=== PATIENT | female | born 1940 | race Caucasian/White ===

== ENCOUNTER 2018-01-25 11:33 | Emergency (ER) | payer MEDICARE, MEDICAID, SELFPAY ==
[2018-01-25 11:35] VITALS: BP 115/61; PULSE 50; RESP 17; TEMP 36.5; O2SAT 94; BMI 26.4
[2018-01-25 11:41] VITALS: O2SAT 95
--- NOTE | 2018-01-25 12:30 | CT_ITS ---
STUDY: CT BRAIN WITHOUT CONTRAST REASON FOR EXAM: Female, 77 years old. Fall. Laceration RADIATION DOSAGE (If Supplied By Facility): CTDIvol = ( 60.81 ) mGy, DLP = ( 1089.89 ) mGycm TECHNIQUE: Transaxial CT imaging of the brain was performed without administration of intravenous contrast material. Individualized dose optimization techniques were used for this CT. COMPARISON: None. FINDINGS: Posterior soft tissue swelling. Normal calvarium. There is moderate cerebral atrophy with widening of the extra-axial spaces and ventricular dilatation. There are areas of decreased attenuation within the white matter tracts of the supratentorial brain, consistent with microvascular disease changes. Stable lacunar infarct of the right basal ganglia. Normal brainstem. There is mild cerebellar atrophy. There is no intracranial hemorrhage. There are no findings of an acute ischemic infarction. Normal visualized paranasal sinuses. CT/Brain/Head without Contrast IMPRESSION: Chronic involutional changes of the brain. Soft tissue swelling. No hemorrhage. Electronically Signed: Harris Fernández MD at 15:16 EDT , Service support ,
--- NOTE | 2018-01-25 12:31 | EKG12_ITS ---
Test Reason : FALL Blood Pressure : / mmHG Vent. Rate : 047 BPM Atrial Rate : 047 BPM P-R Int : 168 ms QRS Dur : 090 ms QT Int : 506 ms P-R-T Axes : 070 -07 -69 degrees QTc Int : 447 ms Suspect unspecified pacemaker failure Sinus bradycardia ST & T wave abnormality, consider inferior ischemia ST & T wave abnormality, consider anterior ischemia Abnormal ECG Confirmed by JAMIE FRANKLIN, MARCY ([id number]), news editor JAXSON ADAMS ([id number] on 01/29/2018 8:25:05 AM Referred By: SUSAN Confirmed By:MARCY AYALA MD
[2018-01-25 13:18] LABS: Absolute Lymphocyte Count 1.36 X10^3/ul (0.83-4.51); Absolute Neutrophil Count 3.7 X10^3/uL (2.0-7.7); Basophil# 0.01 X10^3/uL; Basophil% 0.2 % (0-1); Eosinophil# 0.03 X10^3/uL; Eosinophils% 0.5 % (0-5); Hematocrit 39.3 % (37-47); Hemoglobin 12.9 g/dl (12.0-15.0); Lymphocyte # 1.36 X10^3/ul (4.0); Lymphocyte % 24.8 % (19-41); Mean Corp Hgb Conc 32.8 g/gl (32-36); Mean Corpuscular Hgb 29.8 pg (27.0-32.0); Mean Corpuscular Volume 90.8 fL (81-99); Mean Platelet Vol. 10.8 fl (6.2-12.0); Monocyte# 0.36 X10^3/uL; Monocyte% 6.6 % (0-10); Neutrophil # 3.71 X10^3/uL (2.7-7.7); Neutrophil % 67.5 % (47-70); POSITIVE COUNT NO; POSITIVE DIFFERENTIAL NO; POSITIVE MORPHOLOGY NO; Platelet Count 180 K/mm3 (150-450); RBC Distribution Width SD 46.5 fl (35.1-43.9); Red Blood Count 4.33 M/mm3 (4.2-5.4); White Blood Count 5.5 K/mm3 (4.4-11.0)
[2018-01-25 13:31] LABS: Anion Gap 10 (5-15); BUN 7 mg/dL (7-18); BUN/Creat Ratio 6.7 RATIO (10-20); Calcium,Total 8.8 mg/dL (8.5-10.1); Chloride 104 mmol/L (98-107); Creatinine, Serum 1.04 mg/dL (0.55-1.02); EST Glomerular Filtration Rate 54 mL/min (>60); Est Glom Filt Rate - Afr Amer 66 mL/min (>60); Glucose 97 mg/dL (74-106); Potassium 2.8 mmol/L (3.5-5.1); Sodium Level 144 mmol/L (136-145)
[2018-01-25 15:13] VITALS: BP 109/80; PULSE 49; RESP 18; O2SAT 94
--- NOTE | 2018-01-25 16:00 | ED.DCSUM_ITS ---
- ER Visit Summary Date of Service: 01/25/18 Chief Complaint: [] Head injury History of Present Illness: The patient is a 77 F [] complaining of losing her balance and striking her head. She reports she is on Eliquis. She reports mild headache. Denies nausea/vomiting. Denies hurting her neck. Denies chest pain or shortness of breath. No other complaints at this time. She does report losing her balance more frequently. She reports she resides at a assisted living facility. Physical Examination: [] Afebrile, vital signs stable. 77-year-old female no acute distress. Conversational. Head is normocephalic with a superior occipital hematoma without laceration. There is mild tenderness to the affected area. There is no step-off. There is no midline C-spine tenderness or step-off. Cardiac exam is regular rate and rhythm. Lungs are clear to auscultation. Abdomen is soft nontender. Pelvis stable. Test Results: [] CT head without contrast is negative. CBC is normal. Electrolytes are normal with exertional potassium of 2.8. EKG showed normal sinus rhythm rate of 47 without ectopy unchanged from previous EKG. Emergency Department Course and Treatment: [] Patient evaluated for intracranial bleed secondary to her history of being on Eliquis on her fall. This was negative. Patient's potassium was low and replaced with 40 mEq of KCl. Patient was encouraged to speak with her physician at this living facility to provide arrangements to prevent future falls. Patient was encouraged to add a potassium to her diet and follow-up with her primary care physician. Treatment Plan: [] Follow-up with PCP. Disposition: [] Discharge, stable. Impression: [] Hypokalemia Close head injury This note was generated with [employer] dictation software. It may contain incorrect words, spelling, and punctuation that were not noted in review of the chart prior to signing ED Disposition - Plan for ED Patient: Chief Complaint: Fall Referrals: Bharati Kc DO [Primary Care Provider] -
--- NOTE | 2018-01-25 16:00 | ED.DEP ---
ED Disposition - Plan for ED Patient: Disposition: Home or Assisted Living Chief Complaint: Fall Instructions: ED Fall Uncertain Cause Referrals: Bharati Kc DO [Primary Care Provider] -
[2018-01-25 16:40] VITALS: PULSE 50; RESP 17; O2SAT 95
== END 2018-01-25 16:41 | disposition home or self-care (01) ==
PROVIDERS: Emergency Provider Emergency Medicine; Family Provider Internal Medicine; PCP Internal Medicine
DX: S00.03XA Contusion of scalp, initial encounter (principal); W19.XXXA Unspecified fall, initial encounter; Y93.9 Activity, unspecified; Y92.9 Unspecified place or not applicable; Y99.9 Unspecified external cause status; E87.6 Hypokalemia; I10 Essential (primary) hypertension; Z79.01 Long term (current) use of anticoagulants; Z79.899 Other long term (current) drug therapy; Z86.718 Personal history of other venous thrombosis and embolism; Z86.711 Personal history of pulmonary embolism
CPT/HCPCS: 70450; 80048; 85025; 93005; 99285; A4216

== ENCOUNTER 2018-04-02 15:55 | Inpatient (IN) | payer MEDICARE, SELFPAY ==
[2018-04-02] VITALS (14 sets, daily range): BP systolic 86–114; BP diastolic 50–71; PULSE 63–70; RESP 16–18; TEMP 36.4–36.9; O2SAT 95–98; BMI 26.4; BMI 25.4; BMI 25.5
--- NOTE | 2018-04-02 16:07 | CT_ITS ---
STUDY: CT BRAIN WITHOUT CONTRAST REASON FOR EXAM: Female, 78 years old. Left-sided weakness. RADIATION DOSAGE (If Supplied By Facility): CTDIvol = ( 44.99 ) mGy, DLP = ( 779.24 ) mGycm TECHNIQUE: Transaxial CT imaging of the brain was performed without administration of intravenous contrast material. Individualized dose optimization techniques were used for this CT. COMPARISON: January 25, 2018 FINDINGS: Normal soft tissue structures. Normal calvarium. There is mild cerebral atrophy with widening of the extra-axial spaces and ventricular dilatation. There are areas of decreased attenuation within the white matter tracts of the supratentorial brain, consistent with microvascular disease changes. Normal basal ganglia and thalami. Normal brainstem. There is mild cerebellar atrophy. There is no intracranial hemorrhage. There are no findings of an acute ischemic infarction. Normal visualized paranasal sinuses. CT/Brain/Head without Contrast IMPRESSION: Chronic involutional changes of the brain. Small vessel ischemia. Electronically Signed: Rosina Carreon MD at 17:19 EDT Tel , Service support ,
--- NOTE | 2018-04-02 16:07 | EKG12_ITS ---
Test Reason : WEAKNESS Blood Pressure : / mmHG Vent. Rate : 063 BPM Atrial Rate : 063 BPM P-R Int : 146 ms QRS Dur : 084 ms QT Int : 436 ms P-R-T Axes : 024 -20 030 degrees QTc Int : 446 ms Normal sinus rhythm Normal ECG Confirmed by MARCY AYALA MD ([id number]), film editor supervisor JAXSON ADAMS ([id number] on 04/03/2018 5:13:24 PM Referred By: LILA Confirmed By:MARCY AYALA MD
--- NOTE | 2018-04-02 16:10 | RAD_ITS ---
STUDY: X-RAY CHEST REASON FOR EXAM: Female, 78 years old. Left-sided weakness and slight facial droop. TECHNIQUE: Portable upright. COMPARISON: October 15, 2017. FINDINGS: There is no new focal consolidation. There are leads projecting over the mid and lower thoracic spinal canal that likely reflect underlying neurostimulators. Normal size heart. Normal mediastinum and nicole. Normal visualized pulmonary arteries. There is atherosclerotic calcification of the aortic arch with tortuosity. There are diffuse degenerative changes of the visualized thoracic spine. Normal visualized ribs, clavicles, and shoulders. There is no demonstrated abnormality of the visualized soft tissue structures of the upper abdomen. RAD/Chest 1 View IMPRESSION: No acute cardiopulmonary process. Electronically Signed: Rosina Carreon MD at 16:47 EDT Tel , Service support ,
--- NOTE | 2018-04-02 16:13 | ED.DCSUM_ITS ---
- ER Visit Summary Date of Service: 04/02/18 Chief Complaint: Left-sided weakness History of Present Illness: The patient is a 78 F presenting after developing left-sided weakness and facial droop. This started around 3 PM. Her symptoms have now improved. Her physical therapist noted she had difficulty with forward motion of her left lower extremity. She has a history of mild dementia. She is alert and oriented x2. EMS was called and she was transported to ED for further evaluation. She denies complaints on arrival. Physical Examination: Vitals are stable. Patient is afebrile. Alert no acute distress. HEENT exam is unremarkable. Neck is supple. Lungs are clear and equal bilaterally. Heart is regular rate and rhythm. Abdomen is soft nontender nondistended. Extremities are unremarkable. Skin is warm and dry. Alert and oriented ?2, NIH 1 for LOC questions. Remainder of exam is unremarkable. Emergency Department Course and Treatment: EKG is sinus rate is 63 with no acute ischemic changes. CT head shows chronic changes. Chest x-ray shows no acute process. White count of 13.9. BUN is 45, creatinine 1.75. This is increased from previous of 1.04. INR is 1.2. Urinalysis unremarkable. Troponin is negative. Discussed with Dr. Curiel. He states patient is normally alert and oriented ?3. Discussed with the hospitalist for admission. Disposition: Observation Impression: TIA This note was generated with [employer] dictation software. It may contain incorrect words, spelling, and punctuation that were not noted in review of the chart prior to signing ED Disposition - Plan for ED Patient: Chief Complaint: Neuro S/Sx Referrals: Bharati Kc DO [Primary Care Provider] -
[2018-04-02 16:31] LABS: International Normalized Ratio 1.2; Partial Thromboplast Time 26.3 Seconds (24.1-36.2); Prothrombin Time (Protime)PT. 14.9 SECONDS (11.7-14.9)
[2018-04-02 16:36] LABS: Bedside Glucose 94 mg/dL (70-110)
[2018-04-02 16:53] LABS: Absolute Lymphocyte Count 2.35 X10^3/ul (0.83-4.51); Absolute Neutrophil Count 10.1 X10^3/uL (2.0-7.7); Basophil# 0.04 X10^3/uL; Basophil% 0.3 % (0-1); Eosinophil# 0.08 X10^3/uL; Eosinophils% 0.6 % (0-5); Hematocrit 40.4 % (37-47); Hemoglobin 13.3 g/dl (12.0-15.0); Lymphocyte # 2.35 X10^3/ul (4.0); Mean Corp Hgb Conc 32.9 g/gl (32-36); Mean Corpuscular Hgb 30.8 pg (27.0-32.0); Mean Corpuscular Volume 93.5 fL (81-99); Mean Platelet Vol. 9.9 fl (6.2-12.0); Monocyte# 0.94 X10^3/uL; Monocyte% 6.8 % (0-10); Neutrophil % 72.8 % (47-70); Platelet Count 320 K/mm3 (150-450); RBC Distribution Width CV 16.4 % (11.6-14.6); RBC Distribution Width SD 54.9 fl (35.1-43.9); Red Blood Count 4.32 M/mm3 (4.2-5.4); White Blood Count 13.9 K/mm3 (4.4-11.0)
[2018-04-02 17:05] LABS: POSITIVE COUNT YES; POSITIVE DIFFERENTIAL NO; POSITIVE MORPHOLOGY YES
[2018-04-02 18:17] LABS: Bacteria 0 SEEN /hpf (None Seen); Mucous, Urine 0 SEEN /hpf (<or=2+); Red Blood Cells-Urine 0 SEEN /hpf (0-5); Squamous Epithelial Cells - UA 0 SEEN /hpf (5-10); White Blood Cells 0 SEEN /hpf (0-5)
[2018-04-02 18:34] LABS: Color, Urine Yellow (Yellow); Glucose, Dipstick Normal (Normal); Ketone-Dipstick Negative (Negative); Leukocyte Esterase-Dipstick 25 /ul (Negative); Nitrite-Dipstick Negative (Negative); Occult Blood-Urine Negative /ul (Negative); Protein-Dipstick Negative (Negative); Specific Gravity, Urine 1.015 (1.002-1.030); Urine Bilirubin Dipstick 1 mg/dL (Negative); Urine Clarity Clear (Clear); Urine Urobilinogen Normal (Normal)
[2018-04-02 18:52] LABS: Hyaline Cast 10-25 SEEN /lpf (0-5)
[2018-04-02 19:05] LABS: Anion Gap 10 (5-15); BUN 45 mg/dL (7-18); BUN/Creat Ratio 25.7 RATIO (10-20); Calcium,Total 8.9 mg/dL (8.5-10.1); Chloride 104 mmol/L (98-107); Creatinine, Serum 1.75 mg/dL (0.55-1.02); EST Glomerular Filtration Rate 30 mL/min (>60); Est Glom Filt Rate - Afr Amer 36 mL/min (>60); Glucose 96 mg/dL (74-106); Potassium 4.5 mmol/L (3.5-5.1); Sodium Level 135 mmol/L (136-145)
--- NOTE | 2018-04-02 20:10 | PCM.HP.STD ---
Problem List (1) TIA (transient ischemic attack) Status: Acute Qualifiers: Transient cerebral ischemia type: unspecified Qualified Code(s): G45.9 - Transient cerebral ischemic attack, unspecified (2) MARSHALL (acute kidney injury) Status: Acute History of Present Illness Date of Admission: 04/02/18 Chief Complaint: Confusion and left-sided weakness. The patient is a 78 year old F who is residing at a facility currently and I was noted to be confused and not herself and also noted with left-sided weakness. Patient presented to the emergency room and underwent a CAT scan that showed some chronic ischemic changes but no other acute process. Per reports, patient is normally alert and oriented ?3 but only currently alert and oriented ?2. Patient is not able to articulate what is going on with her at this time. Patient is being admitted for further stroke and TIA workup. [] Past Medical History Past Medical History (Chronic Problems): Chronic Problems History of pulmonary embolism (Chronic) Subcortical infarction (Chronic) Obesity (BMI 30.0-34.9) (Chronic) COPD (chronic obstructive pulmonary disease) (Chronic) Lifelong non-smoker HTN (hypertension) (Chronic) Hx of deep venous thrombosis (Chronic) Hypothyroid (Chronic) Chronic headache (Chronic) Vertigo (Chronic) Allergies Penicillins [PCN] Allergy (Verified 01/25/18 11:38) Hives Home Medications: Ambulatory Orders Medication Instructions Recorded Acetaminophen 650 mg PO Q4H PRN PRN 04/11/17 Acetaminophen 650 mg RC Q4H PRN PRN 04/11/17 Albuterol Aerosols [Ventolin 2.5 mg INHALATION Q4H PRN PRN 04/11/17 Aerosols] Albuterol Liquid [Ventolin Liquid] 2 mg PO Q6H PRN PRN 04/11/17 Atorvastatin Calcium [Lipitor] 20 mg PO QHS 04/11/17 Azelas/Fluticasone/Sod Chlorid 2 each NS QHS 04/11/17 [Ticalast Nasal [place] Kit] Bisacodyl 10 mg RC DAILY PRN PRN 04/11/17 Cholecalciferol (Vitamin D3) 2,000 unit PO DAILY 04/11/17 [Vitamin D3] Furosemide [Lasix] 20 mg PO DAILY 04/11/17 Guaifenesin [Robitussin] 10 ml PO Q4H PRN PRN 04/11/17 Levothyroxine [Synthroid] 100 mcg PO DAILY 04/11/17 Lisinopril [Zestril] 10 mg PO BID 04/11/17 Loratadine 10 mg PO DAILY 04/11/17 Mag Hydrox/Al Hydrox/Simeth 30 ml PO Q4H PRN PRN 04/11/17 [Antacid Suspension] Magnesium Hydroxide [Milk Of 30 ml PO DAILY PRN PRN 04/11/17 Magnesia] Meclizine HCl 25 mg PO TID PRN PRN 04/11/17 Mometasone/Formoterol [Dulera 100 1 puff IH DAILY 04/11/17 Mcg/5 Mcg Inhaler] Na Phos,M-B/Na Phos,Di-Ba [Fleet 120 ml RECTAL DAILY PRN PRN 04/11/17 Enema] Omeprazole 20 mg PO QHS 04/11/17 Oxybutynin Chloride [Ditropan Xl] 10 mg PO QHS 04/11/17 Sumatriptan Succinate [Imitrex] 100 mg PO .X1 PRN 04/11/17 Tetrahydrz/Dext 70/Peg 400/Pvp 2 drop EACH EYE DAILY 04/11/17 [Visine Advanced Eye Drop] Trazodone HCl 100 mg PO QHS 04/11/17 Apixaban [Eliquis] 2.5 mg PO DAILY 10/15/17 Propranolol HCl 40 mg PO BID 10/15/17 Glucosam/Chondroitin/Diet Cb25 1 tab PO BID 10/16/17 [Trepadone Capsule] Guaifenesin [Guaifenesin ER] 1 tab PO BID 10/16/17 Montelukast Sodium [Singulair] 10 mg PO QHS 10/16/17 Bupropion HCl [Bupropion HCl Sr] 200 mg PO BID 01/25/18 Cyanocobalamin [Vitamin B12] 1,000 mcg PO DAILY@0800 01/25/18 Fluoxetine [Prozac] 20 mg PO DAILY 01/25/18 Citalopram Hydrobromide 20 mg PO DAILY 04/02/18 [Citalopram HBr] Fluticasone/Vilanterol [Breo 1 inhaler INHALATION DAILY 04/02/18 Ellipta 200-25 Mcg INH] Megestrol [Megace] 40 mg PO DAILY 04/02/18 Surgical History: appendectomy, cataract, hysterectomy, total knee arthroplasty - bilateral, - - Lumbar fusion Psychiatric History: No pertinent psych hx MAINTENANCE DIRECTOR History: No pertinent MAINTENANCE DIRECTOR history Smoking Status: Unknown if ever smoked - *Family History Maternal History Items: Dementia, Heart Disease - age 85 Paternal History Items: Dementia, Heart Disease - age 84 Offspring History Items: No pertinent history - 1 adopted daughter lived in [place] Review of Systems Constitutional: Denies: Chills, Fever, Weight Change Eyes: Denies: Blurred vision, Double vision HEENT: Denies: Head Aches, Sinus Congestion, Sinus Drainage Cardiovascular: Denies: Chest Pain, Palpitations Respiratory: Denies: Cough, Shortness of breath at rest, Sputum production Gastrointestinal: Denies: Abdominal Pain, Nausea, Vomiting Genitourinary: Denies: Dysuria Musculoskeletal: Denies: Joint Pain, Joint Tenderness Skin: Denies: Dryness, Rash Neurological: Reports: Confusion, Focal weakness - Reports of left sided weakness.. Denies: Blurred vision, Double vision, Numbness, Tingling Psychiatric: Denies: Anxiety, Depression Endocrine: Denies: Change in Body Habitus, Heat/ Cold Intolerance Hematologic/ Lymphatic: Denies: Easy Bruising, Easy Bleeding, Hx of blood clot VTE Information - Inpt Only VTE Present on Admission: No VTE Pharm Prophylaxis ordered?: Yes Patient Problems: Active and Suspected Problems TIA (transient ischemic attack) (Acute) MARSHALL (acute kidney injury) (Acute) - Physical Exam General: Alert, Cooperative, No apparent distress, - - oriented to self and place (date = June, did not know year) HEENT: Atraumatic, PERRLA, EOMI, Normocephalic Oral: Moist Mucosa, No Gingival or Mucosal Lesions/ Ulcerations Neck: No Nodes, Thyroid Normal Size and Texture Lungs: Clear to auscultation, Normal air movement, No rhonchi, No wheeze Cardiovascular: Regular rate, Regular Rhythm, Normal S1, Normal S2, No murmurs Abdomen: Bowel Sounds Present, Soft, Non Tender, Non-Distended, No Hepato-splenomegaly Extremities: No edema, No Calf Tenderness Skin: No rashes, No breakdown Musculoskeletal: No Tenderness to Palpation of Joints or Extremities, No Muscle Wasting Neurological: Cranial nerves II-XII grossly intact, Deep Tendon Reflexes 2+/4 and Symmetrical, Neuro grossly intact, Motor Exam 5/5 strength throughout, - - NIH = 2 (missed as she did not know the date and she had some trouble articulating the image of the kitchen) Psych/Mental Status: Normal Affect, Appropriate Vital Signs Temp Pulse Resp BP Pulse Ox 36.4 C L 65 16 96/57 L 98 04/02/18 15:56 04/02/18 19:58 04/02/18 19:58 04/02/18 19:58 04/02/18 19:58 Oxygen Delivery Method Room Air Laboratory Results 04/02/18 04/02/18 04/02/18 18:30 18:10 16:28 WBC RBC Hgb Hct MCV MCH MCHC RDW RDW Differential Plt Count MPV Immature Gran % (Auto) Neut % (Auto) Lymph % (Auto) [place] % (Auto) Eos % (Auto) Baso % (Auto) Absolute Neuts (auto) Absolute Lymphs (auto) Total Counted Diff Path Review PT INR APTT Sodium 135 L Potassium 4.5 Chloride 104 Carbon Dioxide 21.0 Anion Gap 10 BUN 45 H Creatinine 1.75 H Estim Creat Clear Calc Est GFR (MDRD) Af Amer 36 L Est GFR (MDRD) Non-Af 30 L BUN/Creatinine Ratio 25.7 H Glucose 96 Calcium 8.9 Troponin I < 0.015 Urine Color Yellow Urine Clarity Clear Urine pH 5.0 Ur Specific [place] 1.015 Urine Protein Negative Urine Glucose (UA) Normal Urine Ketones Negative Urine Occult Blood Negative Urine Nitrite Negative Urine Bilirubin 1 H Urine Urobilinogen Normal Ur Leukocyte Esterase 25 H Urine RBC 0 SEEN Urine WBC 0 SEEN Ur Squamous Epith Cells 0 SEEN Urine Bacteria 0 SEEN Hyaline Casts 10-25 SEEN Urine Mucus 0 SEEN POC Glucose 94 04/02/18 04/02/18 04/02/18 16:14 16:14 16:14 WBC 13.9 H RBC 4.32 Hgb 13.3 Hct 40.4 MCV 93.5 MCH 30.8 MCHC 32.9 RDW 16.4 H RDW Differential 54.9 H Plt Count 320 MPV 9.9 Immature Gran % (Auto) 2.500 H Neut % (Auto) 72.8 H Lymph % (Auto) 17.0 L [place] % (Auto) 6.8 Eos % (Auto) 0.6 Baso % (Auto) 0.3 Absolute Neuts (auto) 10.1 H Absolute Lymphs (auto) 2.35 Total Counted Not Reportable Diff Path Review February foll PT 14.9 INR 1.2 APTT 26.3 Sodium Cancelled Potassium Cancelled Chloride Cancelled Carbon Dioxide Cancelled Anion Gap Cancelled BUN Cancelled Creatinine Cancelled Estim Creat Clear Calc Cancelled Est GFR (MDRD) Af Amer Cancelled Est GFR (MDRD) Non-Af Cancelled BUN/Creatinine Ratio Cancelled Glucose Cancelled Calcium Cancelled Troponin I Cancelled Urine Color Urine Clarity Urine pH Ur Specific [place] Urine Protein Urine Glucose (UA) Urine Ketones Urine Occult Blood Urine Nitrite Urine Bilirubin Urine Urobilinogen Ur Leukocyte Esterase Urine RBC Urine WBC Ur Squamous Epith Cells Urine Bacteria Hyaline Casts Urine Mucus POC Glucose Clinical Impression(s) from Imaging Studies Brain CT 04/02/18 16:07 IMPRESSION: Chronic involutional changes of the brain. Small vessel ischemia. Electronically Signed: Rosina Carreon MD at 17:19 EDT Tel , Service support , Chest X-Ray 04/02/18 16:10 IMPRESSION: No acute cardiopulmonary process. Electronically Signed: Rosina Carreon MD at 16:47 EDT Tel , Service support , EKG reviewed and showed normal sinus rhythm without any acute changes. Assessment/Plan All Active Problems TIA (transient ischemic attack) (Acute) MARSHALL (acute kidney injury) (Acute) Elevated serum creatinine (Acute) Dehydration (Acute) Hypokalemia (Acute) Hypotension (Acute) TIA (transient ischemic attack) (Resolved) 1. TIA Suspected Patient with confusion and left-sided weakness Patient is confused and are poorly this is a change from her baseline but I do not appreciate any left-sided weakness at this time Patient will undergo a TIA and stroke workup with an MRI of the brain, MRA of the head neck, 2D echocardiogram, neurology consultation for physical and occupational therapy. Patient will have a bedside swallow evaluation and if she feels that the speech therapy will be involved if she passes then patient can start diet. The possibilities could be the fact that patient's creatinine is up which could reflect dehydration which could manifest some confusion symptoms in a 78-year-old. Patient was already on Eliquis 2. Acute kidney injury Creatinine from January 25 was 1.04 and now it is 1.75 Patient's Lasix will be discontinued and patient will receive IV fluids Reassess creatinine in the morning 3. DVT prophylaxis: Patient is already anticoagulated on Eliquis and will continue. However, it appears the patient is only on once daily could consider increasing it to twice daily and but will assess the patient's stroke workup and then proceed from there. Code Visit Inpatient E&M: 32349 Init Hosp L3
--- NOTE | 2018-04-02 20:18 | HP.PCM_ITS ---
Problem List (1) TIA (transient ischemic attack) Status: Acute Qualifiers: Transient cerebral ischemia type: unspecified Qualified Code(s): G45.9 - Transient cerebral ischemic attack, unspecified (2) MARSHALL (acute kidney injury) Status: Acute History of Present Illness Date of Admission: 04/02/18 Chief Complaint: Confusion and left-sided weakness. The patient is a 78 year old F who is residing at a facility currently and I was noted to be confused and not herself and also noted with left-sided weakness. Patient presented to the emergency room and underwent a CAT scan that showed some chronic ischemic changes but no other acute process. Per reports, patient is normally alert and oriented ?3 but only currently alert and oriented ?2. Patient is not able to articulate what is going on with her at this time. Patient is being admitted for further stroke and TIA workup. [] Past Medical History Past Medical History (Chronic Problems): Chronic Problems History of pulmonary embolism (Chronic) Subcortical infarction (Chronic) Obesity (BMI 30.0-34.9) (Chronic) COPD (chronic obstructive pulmonary disease) (Chronic) Lifelong non-smoker HTN (hypertension) (Chronic) Hx of deep venous thrombosis (Chronic) Hypothyroid (Chronic) Chronic headache (Chronic) Vertigo (Chronic) Allergies Penicillins [PCN] Allergy (Verified 01/25/18 11:38) Hives Home Medications: Ambulatory Orders Medication Instructions Recorded Acetaminophen 650 mg PO Q4H PRN PRN 04/11/17 Acetaminophen 650 mg RC Q4H PRN PRN 04/11/17 Albuterol Aerosols [Ventolin 2.5 mg INHALATION Q4H PRN PRN 04/11/17 Aerosols] Albuterol Liquid [Ventolin Liquid] 2 mg PO Q6H PRN PRN 04/11/17 Atorvastatin Calcium [Lipitor] 20 mg PO QHS 04/11/17 Azelas/Fluticasone/Sod Chlorid 2 each NS QHS 04/11/17 [Ticalast Nasal [place] Kit] Bisacodyl 10 mg RC DAILY PRN PRN 04/11/17 Cholecalciferol (Vitamin D3) 2,000 unit PO DAILY 04/11/17 [Vitamin D3] Furosemide [Lasix] 20 mg PO DAILY 04/11/17 Guaifenesin [Robitussin] 10 ml PO Q4H PRN PRN 04/11/17 Levothyroxine [Synthroid] 100 mcg PO DAILY 04/11/17 Lisinopril [Zestril] 10 mg PO BID 04/11/17 Loratadine 10 mg PO DAILY 04/11/17 Mag Hydrox/Al Hydrox/Simeth 30 ml PO Q4H PRN PRN 04/11/17 [Antacid Suspension] Magnesium Hydroxide [Milk Of 30 ml PO DAILY PRN PRN 04/11/17 Magnesia] Meclizine HCl 25 mg PO TID PRN PRN 04/11/17 Mometasone/Formoterol [Dulera 100 1 puff IH DAILY 04/11/17 Mcg/5 Mcg Inhaler] Na Phos,M-B/Na Phos,Di-Ba [Fleet 120 ml RECTAL DAILY PRN PRN 04/11/17 Enema] Omeprazole 20 mg PO QHS 04/11/17 Oxybutynin Chloride [Ditropan Xl] 10 mg PO QHS 04/11/17 Sumatriptan Succinate [Imitrex] 100 mg PO .X1 PRN 04/11/17 Tetrahydrz/Dext 70/Peg 400/Pvp 2 drop EACH EYE DAILY 04/11/17 [Visine Advanced Eye Drop] Trazodone HCl 100 mg PO QHS 04/11/17 Apixaban [Eliquis] 2.5 mg PO DAILY 10/15/17 Propranolol HCl 40 mg PO BID 10/15/17 Glucosam/Chondroitin/Diet Cb25 1 tab PO BID 10/16/17 [Trepadone Capsule] Guaifenesin [Guaifenesin ER] 1 tab PO BID 10/16/17 Montelukast Sodium [Singulair] 10 mg PO QHS 10/16/17 Bupropion HCl [Bupropion HCl Sr] 200 mg PO BID 01/25/18 Cyanocobalamin [Vitamin B12] 1,000 mcg PO DAILY@0800 01/25/18 Fluoxetine [Prozac] 20 mg PO DAILY 01/25/18 Citalopram Hydrobromide 20 mg PO DAILY 04/02/18 [Citalopram HBr] Fluticasone/Vilanterol [Breo 1 inhaler INHALATION DAILY 04/02/18 Ellipta 200-25 Mcg INH] Megestrol [Megace] 40 mg PO DAILY 04/02/18 Surgical History: appendectomy, cataract, hysterectomy, total knee arthroplasty - bilateral, - - Lumbar fusion Psychiatric History: No pertinent psych hx SHOER History: No pertinent SHOER history Smoking Status: Unknown if ever smoked - *Family History Maternal History Items: Dementia, Heart Disease - age 85 Paternal History Items: Dementia, Heart Disease - age 84 Offspring History Items: No pertinent history - 1 adopted daughter lived in [place] Review of Systems Constitutional: Denies: Chills, Fever, Weight Change Eyes: Denies: Blurred vision, Double vision HEENT: Denies: Head Aches, Sinus Congestion, Sinus Drainage Cardiovascular: Denies: Chest Pain, Palpitations Respiratory: Denies: Cough, Shortness of breath at rest, Sputum production Gastrointestinal: Denies: Abdominal Pain, Nausea, Vomiting Genitourinary: Denies: Dysuria Musculoskeletal: Denies: Joint Pain, Joint Tenderness Skin: Denies: Dryness, Rash Neurological: Reports: Confusion, Focal weakness - Reports of left sided weakness.. Denies: Blurred vision, Double vision, Numbness, Tingling Psychiatric: Denies: Anxiety, Depression Endocrine: Denies: Change in Body Habitus, Heat/ Cold Intolerance Hematologic/ Lymphatic: Denies: Easy Bruising, Easy Bleeding, Hx of blood clot VTE Information - Inpt Only VTE Present on Admission: No VTE Pharm Prophylaxis ordered?: Yes Patient Problems: Active and Suspected Problems TIA (transient ischemic attack) (Acute) MARSHALL (acute kidney injury) (Acute) - Physical Exam General: Alert, Cooperative, No apparent distress, - - oriented to self and place (date = June, did not know year) HEENT: Atraumatic, PERRLA, EOMI, Normocephalic Oral: Moist Mucosa, No Gingival or Mucosal Lesions/ Ulcerations Neck: No Nodes, Thyroid Normal Size and Texture Lungs: Clear to auscultation, Normal air movement, No rhonchi, No wheeze Cardiovascular: Regular rate, Regular Rhythm, Normal S1, Normal S2, No murmurs Abdomen: Bowel Sounds Present, Soft, Non Tender, Non-Distended, No Hepato- splenomegaly Extremities: No edema, No Calf Tenderness Skin: No rashes, No breakdown Musculoskeletal: No Tenderness to Palpation of Joints or Extremities, No Muscle Wasting Neurological: Cranial nerves II-XII grossly intact, Deep Tendon Reflexes 2+/4 and Symmetrical, Neuro grossly intact, Motor Exam 5/5 strength throughout, - - NIH = 2 (missed as she did not know the date and she had some trouble articulating the image of the kitchen) Psych/Mental Status: Normal Affect, Appropriate Vital Signs Temp Pulse Resp BP Pulse Ox 36.4 C L 65 16 96/57 L 98 04/02/18 15:56 04/02/18 19:58 04/02/18 19:58 04/02/18 19:58 04/02/18 19:58 Oxygen Delivery Method Room Air Laboratory Results 04/02/18 04/02/18 04/02/18 18:30 18:10 16:28 WBC RBC Hgb Hct MCV MCH MCHC RDW RDW Differential Plt Count MPV Immature Gran % (Auto) Neut % (Auto) Lymph % (Auto) [place] % (Auto) Eos % (Auto) Baso % (Auto) Absolute Neuts (auto) Absolute Lymphs (auto) Total Counted Diff Path Review PT INR APTT Sodium 135 L Potassium 4.5 Chloride 104 Carbon Dioxide 21.0 Anion Gap 10 BUN 45 H Creatinine 1.75 H Estim Creat Clear Calc Est GFR (MDRD) Af Amer 36 L Est GFR (MDRD) Non-Af 30 L BUN/Creatinine Ratio 25.7 H Glucose 96 Calcium 8.9 Troponin I < 0.015 Urine Color Yellow Urine Clarity Clear Urine pH 5.0 Ur Specific [place] 1.015 Urine Protein Negative Urine Glucose (UA) Normal Urine Ketones Negative Urine Occult Blood Negative Urine Nitrite Negative Urine Bilirubin 1 H Urine Urobilinogen Normal Ur Leukocyte Esterase 25 H Urine RBC 0 SEEN Urine WBC 0 SEEN Ur Squamous Epith Cells 0 SEEN Urine Bacteria 0 SEEN Hyaline Casts 10-25 SEEN Urine Mucus 0 SEEN POC Glucose 94 04/02/18 04/02/18 04/02/18 16:14 16:14 16:14 WBC 13.9 H RBC 4.32 Hgb 13.3 Hct 40.4 MCV 93.5 MCH 30.8 MCHC 32.9 RDW 16.4 H RDW Differential 54.9 H Plt Count 320 MPV 9.9 Immature Gran % (Auto) 2.500 H Neut % (Auto) 72.8 H Lymph % (Auto) 17.0 L [place] % (Auto) 6.8 Eos % (Auto) 0.6 Baso % (Auto) 0.3 Absolute Neuts (auto) 10.1 H Absolute Lymphs (auto) 2.35 Total Counted Not Reportable Diff Path Review February foll PT 14.9 INR 1.2 APTT 26.3 Sodium Cancelled Potassium Cancelled Chloride Cancelled Carbon Dioxide Cancelled Anion Gap Cancelled BUN Cancelled Creatinine Cancelled Estim Creat Clear Calc Cancelled Est GFR (MDRD) Af Amer Cancelled Est GFR (MDRD) Non-Af Cancelled BUN/Creatinine Ratio Cancelled Glucose Cancelled Calcium Cancelled Troponin I Cancelled Urine Color Urine Clarity Urine pH Ur Specific [place] Urine Protein Urine Glucose (UA) Urine Ketones Urine Occult Blood Urine Nitrite Urine Bilirubin Urine Urobilinogen Ur Leukocyte Esterase Urine RBC Urine WBC Ur Squamous Epith Cells Urine Bacteria Hyaline Casts Urine Mucus POC Glucose Clinical Impression(s) from Imaging Studies Brain CT 04/02/18 16:07 IMPRESSION: Chronic involutional changes of the brain. Small vessel ischemia. Electronically Signed: Rosina Carreon MD at 17:19 EDT Tel , Service support , Chest X-Ray 04/02/18 16:10 IMPRESSION: No acute cardiopulmonary process. Electronically Signed: Rosina Carreon MD at 16:47 EDT Tel , Service support , EKG reviewed and showed normal sinus rhythm without any acute changes. Assessment/Plan All Active Problems TIA (transient ischemic attack) (Acute) MARSHALL (acute kidney injury) (Acute) Elevated serum creatinine (Acute) Dehydration (Acute) Hypokalemia (Acute) Hypotension (Acute) TIA (transient ischemic attack) (Resolved) 1. TIA * Suspected * Patient with confusion and left-sided weakness * Patient is confused and are poorly this is a change from her baseline but I do not appreciate any left-sided weakness at this time * Patient will undergo a TIA and stroke workup with an MRI of the brain, MRA of the head neck, 2D echocardiogram, neurology consultation for physical and occupational therapy. * Patient will have a bedside swallow evaluation and if she feels that the speech therapy will be involved if she passes then patient can start diet. * The possibilities could be the fact that patient's creatinine is up which could reflect dehydration which could manifest some confusion symptoms in a 78- year-old. * Patient was already on Eliquis 2. Acute kidney injury * Creatinine from January 25 was 1.04 and now it is 1.75 * Patient's Lasix will be discontinued and patient will receive IV fluids * Reassess creatinine in the morning 3. DVT prophylaxis: Patient is already anticoagulated on Eliquis and will continue. However, it appears the patient is only on once daily could consider increasing it to twice daily and but will assess the patient's stroke workup and then proceed from there. Code Visit Inpatient E&M: 88959 Init Hosp L3
--- NOTE | 2018-04-02 21:17 | ECHOD_ITS ---
Reason For Study: TIA/CVA Procedure This was a 2D Doppler, Color Flow transthoracic echocardiogram. The study was technically difficult. Exam performed portable in patient room. Left Ventricle Normal LV size. Left ventricular systolic function is normal. The estimated ejection fraction is 65 %. No evidence for diastolic dysfunction. No regional wall motion abnormalities noted. Right Ventricle Normal RV size. Normal systolic function. Atria Normal left atrium. Normal right atrium. Lipomatous hypertrophy of the atrial septum. No doppler evidence for ASD. Mitral Valve There is mild mitral annular calcification. Normal mitral valve. Trivial mitral valve insufficiency. Tricuspid Valve Normal tricuspid valve. Trivial tricuspid valve insufficiency. Unable to estimate RV systolic pressure/pulmonary artery pressure due to technically difficult study. Aortic Valve Trisinus/trileaflet aortic valve. Mild focal aortic valve thickening. Pulmonic Valve The pulmonic valve is not well visualized. Great Vessels Normal sized aortic root. Pericardium/Pleural No pericardial effusion. MMode/2D Measurements & Calculations LVIDd: 4.2 cm IVSd: 0.82 cm Ao root diam: 3.0 cm LVIDs: 3.0 cm LVPWd: 0.89 cm LA dimension: 3.2 cm RVDd: 3.7 cm FS: 28.8 % LAV(MOD-bp): 30.8 ml EDV(MOD-sp4): 59.7 ml SV(MOD-sp4): 42.4 ml LAV(MOD-bp) Indexed: 17.9 ml/m2 ESV(MOD-sp4): 17.4 ml LAV(MOD-sp2): 29.2 ml EF(MOD-sp4): 71.0 % LAV(MOD-sp4): 30.4 ml LA A4 area: 14.3 cm2 RA A4 area: 10.5 cm2 Doppler Measurements & Calculations MV E max evelio: 64.8 cm/sec Lat Peak E' Evelio: 8.9 cm/sec Med Peak E' Evelio: 7.0 cm/sec MV A max evelio: 90.2 cm/sec E/E' lat: 7.3 E/E' med: 9.3 MV E/A: 0.72 Ao V2 max: 135.3 cm/sec LV V1 max: 127.7 cm/sec PA V2 max: 78.8 cm/sec Ao max P.3 mmHg LV V1 max P.5 mmHg Ao V2 mean: 93.4 cm/sec Ao mean P.0 mmHg Ao V2 VTI: 25.8 cm Interpretation Summary The study was technically difficult. Left ventricular systolic function is normal. The estimated ejection fraction is 65 %. Lipomatous hypertrophy of the atrial septum. There is mild mitral annular calcification. Trivial mitral valve insufficiency. Trivial tricuspid valve insufficiency. Mild focal aortic valve thickening. Unable to estimate RV systolic pressure/pulmonary artery pressure due to technically difficult study. No evidence for diastolic dysfunction. Ordering Physician: Josiah Dawn Referring Physician: Bharati Kc Performed By: Kimi Knapp, ANDRY, RVT
[2018-04-02] MEDS: 0.9% NaCl Peripheral Flush Adult/Peds IV ×2 (22:36→23:44)
[2018-04-02] MEDS: 0.9% Normal Saline 1,000 ML 75 ML IV (22:36)
[2018-04-02] MEDS: Tolterodine Tartrate 2 MG CAP.SA PO (23:42)
[2018-04-02] MEDS: guaiFENesin 600 MG Tablet PO (23:42)
[2018-04-02] MEDS: buPROPion (SR) 100 MG TABLET.SA 200 MG PO (23:42)
[2018-04-02] MEDS: Aspirin 81 MG TAB.CHEW PO (23:42)
[2018-04-02] MEDS: Lisinopril 10 MG Tablet PO (23:43)
[2018-04-02] MEDS: Montelukast 10 MG Tablet PO (23:43)
[2018-04-02] MEDS: Atorvastatin Calcium 20 MG Tablet PO (23:43)
[2018-04-02] MEDS: Propranolol 40 MG Tablet PO (23:43)
[2018-04-02] MEDS: Pantoprazole Sodium 20 MG Tablet PO (23:44)
[2018-04-03] VITALS (15 sets, daily range): BP systolic 94–136; BP diastolic 38–113; PULSE 60–87; RESP 16–18; TEMP 36.7–37.3; O2SAT 94–98; BMI 25.4
[2018-04-03] MEDS: Levothyroxine 100 MCG Tablet PO (05:21)
[2018-04-03 06:16] LABS: Cholesterol 135 mg/dL (200); High Density Lipoprotein 39 mg/dL; Triglycerides 73 mg/dL; Very Low Density Lipoprotein 15 mg/dL (5-40)
[2018-04-03] MEDS: Albuterol 2.5 MG/3 ML VIAL.NEB. INHALATION ×3 (07:45→18:57)
[2018-04-03] MEDS: Budesonide Respules 0.5 MG/2 ML AMPUL.NEB. INHALATION ×2 (07:45→18:57)
[2018-04-03] MEDS: Aspirin 81 MG TAB.CHEW PO (08:22)
[2018-04-03] MEDS: Cyanocobalamin 500 MCG Tablet 1000 MCG PO (08:22)
--- NOTE | 2018-04-03 10:39 | CASEMGMT ---
RENA called [facility] and patient is a [facility] resident. She does not require a pre-cert to return. She said if they want to try and skill her they can do it once she returns. RENA faxed clinicals to [facility]. Plan: d/c back to [facility] when ready. Mayte CRAIN MSW
[2018-04-03] MEDS: Citalopram 20 MG Tablet PO (11:01)
[2018-04-03] MEDS: Loratadine 10 MG Tablet PO (11:01)
[2018-04-03] MEDS: buPROPion (SR) 100 MG TABLET.SA 200 MG PO ×2 (11:07→22:23)
[2018-04-03] MEDS: APIXABAN 2.5 MG TABLET PO (11:08)
[2018-04-03] MEDS: guaiFENesin 600 MG Tablet PO ×2 (11:08→22:23)
--- NOTE | 2018-04-03 11:17 | PCM.CONS.GEN ---
Reason for Consult Date of Consultation: 04/03/18 Reason for Consultation: Confusion History of Present Illness: The patient is a 78 year old F admitted from a residential for confusion. See admit H&P note as below. The patient is unable to tell me why she is here, she states that she is in [facility]. She denies any pain. Currently has a pain stimulator in her back and cannot have an MRI. Nursing staff reports that she is stable hemodynamically, no fevers. Per admit H&P:The patient is a 78 year old F who is residing at a facility currently and I was noted to be confused and not herself and also noted with left-sided weakness. Patient presented to the emergency room and underwent a CAT scan that showed some chronic ischemic changes but no other acute process. Per reports, patient is normally alert and oriented ?3 but only currently alert and oriented ?2. Patient is not able to articulate what is going on with her at this time. Patient is being admitted for further stroke and TIA workup. Past Medical History Past Medical History (Chronic Problems): Chronic Problems History of pulmonary embolism (Chronic) Subcortical infarction (Chronic) Obesity (BMI 30.0-34.9) (Chronic) COPD (chronic obstructive pulmonary disease) (Chronic) Lifelong non-smoker HTN (hypertension) (Chronic) Hx of deep venous thrombosis (Chronic) Hypothyroid (Chronic) Chronic headache (Chronic) Vertigo (Chronic) Allergies Penicillins [PCN] Allergy (Verified 01/25/18 11:38) Hives Home Medications: Ambulatory Orders Medication Instructions Recorded Acetaminophen 650 mg PO Q4H PRN PRN 04/11/17 Acetaminophen 650 mg RC Q4H PRN PRN 04/11/17 Albuterol Aerosols [Ventolin 2.5 mg INHALATION Q4H PRN PRN 04/11/17 Aerosols] Albuterol Liquid [Ventolin Liquid] 2 mg PO Q6H PRN PRN 04/11/17 Atorvastatin Calcium [Lipitor] 20 mg PO QHS 04/11/17 Azelas/Fluticasone/Sod Chlorid 2 each NS QHS 04/11/17 [Ticalast Nasal [place] Kit] Bisacodyl 10 mg RC DAILY PRN PRN 04/11/17 Cholecalciferol (Vitamin D3) 2,000 unit PO DAILY 04/11/17 [Vitamin D3] Furosemide [Lasix] 20 mg PO DAILY 04/11/17 Guaifenesin [Robitussin] 10 ml PO Q4H PRN PRN 04/11/17 Levothyroxine [Synthroid] 100 mcg PO DAILY 04/11/17 Lisinopril [Zestril] 10 mg PO BID 04/11/17 Loratadine 10 mg PO DAILY 04/11/17 Mag Hydrox/Al Hydrox/Simeth 30 ml PO Q4H PRN PRN 04/11/17 [Antacid Suspension] Magnesium Hydroxide [Milk Of 30 ml PO DAILY PRN PRN 04/11/17 Magnesia] Meclizine HCl 25 mg PO TID PRN PRN 04/11/17 Mometasone/Formoterol [Dulera 100 1 puff IH DAILY 04/11/17 Mcg/5 Mcg Inhaler] Na Phos,M-B/Na Phos,Di-Ba [Fleet 120 ml RECTAL DAILY PRN PRN 04/11/17 Enema] Omeprazole 20 mg PO QHS 04/11/17 Oxybutynin Chloride [Ditropan Xl] 10 mg PO QHS 04/11/17 Sumatriptan Succinate [Imitrex] 100 mg PO .X1 PRN 04/11/17 Tetrahydrz/Dext 70/Peg 400/Pvp 2 drop EACH EYE DAILY 04/11/17 [Visine Advanced Eye Drop] Trazodone HCl 100 mg PO QHS 04/11/17 Apixaban [Eliquis] 2.5 mg PO DAILY 10/15/17 Propranolol HCl 40 mg PO BID 10/15/17 Glucosam/Chondroitin/Diet Cb25 1 tab PO BID 10/16/17 [Trepadone Capsule] Guaifenesin [Guaifenesin ER] 1 tab PO BID 10/16/17 Montelukast Sodium [Singulair] 10 mg PO QHS 10/16/17 Bupropion HCl [Bupropion HCl Sr] 200 mg PO BID 01/25/18 Cyanocobalamin [Vitamin B12] 1,000 mcg PO DAILY@0800 01/25/18 Citalopram Hydrobromide 20 mg PO DAILY 04/02/18 [Citalopram HBr] Fluticasone/Vilanterol [Breo 1 inhaler INHALATION DAILY 04/02/18 Ellipta 200-25 Mcg INH] Megestrol [Megace] 40 mg PO DAILY 04/02/18 Surgical History: appendectomy, cataract, hysterectomy, total knee arthroplasty - bilateral, - - Lumbar fusion Psychiatric History: No pertinent psych hx 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 Smoking Status: Never smoker Tobacco Use: Non-smoker - *Family History Maternal History Items: Dementia, Heart Disease - age 85 Paternal History Items: Dementia, Heart Disease - age 84 Offspring History Items: No pertinent history - 1 adopted daughter lived in [place] Review of Systems Constitutional: Denies: Chills, Fever, Weight Change HEENT: Denies: Head Aches, Sinus Congestion, Sinus Drainage Cardiovascular: Denies: Chest Pain, Palpitations Respiratory: Denies: Cough, Shortness of breath at rest, Sputum production Gastrointestinal: Denies: Abdominal Pain, Nausea, Vomiting Genitourinary: Denies: Dysuria Musculoskeletal: Denies: Joint Pain, Joint Tenderness Skin: Denies: Rash, Wounds Neurological: Denies: Numbness, Tingling, Focal weakness Psychiatric: Denies: Anxiety, Depression, Homicidal Ideations, Suicidal Ideations Hematologic/ Lymphatic: Denies: Easy Bruising, Easy Bleeding Patient Problems: Active and Suspected Problems TIA (transient ischemic attack) (Acute) MARSHALL (acute kidney injury) (Acute) - Physical Exam General: Alert, Oriented x3, Cooperative HEENT: Atraumatic, PERRLA, EOMI, Normocephalic Neck: Supple, No JVD, Negative Carotid Bruits Lungs: Clear to auscultation, Normal air movement Cardiovascular: Regular rate, No murmurs Abdomen: Bowel Sounds Present, Soft, Non Tender Extremities: No edema, Capillary Refill Less than 3 Seconds Skin: No rashes, No breakdown Musculoskeletal: No Tenderness to Palpation of Joints or Extremities Neurological: Cranial nerves II-XII grossly intact, - - neurologically she does have mild left drift, and abnormal forearm orbit testing on the left. Her reflexes are slightly asymmetric with increased reflexes on the left. Psych/Mental Status: Normal Affect, Appropriate Vital Signs Temp Pulse Resp BP Pulse Ox 37.3 C H 63 17 99/48 L 95 04/03/18 08:11 04/03/18 08:11 04/03/18 08:11 04/03/18 08:11 04/03/18 08:11 Oxygen Flow Rate (L/min) 2 Oxygen Delivery Method Room Air Weight: 67.4 kg Body Mass Index (BMI) 25.4 Intake and Output for Last 24 Hours 04/01/18 04/02/18 04/03/18 23:59 23:59 23:59 Intake Total 79 541 / 541 Balance 541 / 541 Laboratory Tests Past 24 Hrs 04/03/18 05:08 Triglycerides 73 Cholesterol 135 LDL Cholesterol 81 VLDL Cholesterol 15 HDL Cholesterol 39 L Laboratory Results - last 24 hr 04/02/18 04/02/18 04/02/18 16:14 16:14 16:14 WBC 13.9 H RBC 4.32 Hgb 13.3 Hct 40.4 MCV 93.5 MCH 30.8 MCHC 32.9 RDW 16.4 H RDW Differential 54.9 H Plt Count 320 MPV 9.9 Immature Gran % (Auto) 2.500 H Neut % (Auto) 72.8 H Lymph % (Auto) 17.0 L [place] % (Auto) 6.8 Eos % (Auto) 0.6 Baso % (Auto) 0.3 Absolute Neuts (auto) 10.1 H Absolute Lymphs (auto) 2.35 Total Counted Not Reportable Diff Path Review May foll PT 14.9 INR 1.2 APTT 26.3 Sodium Cancelled Potassium Cancelled Chloride Cancelled Carbon Dioxide Cancelled Anion Gap Cancelled BUN Cancelled Creatinine Cancelled Estim Creat Clear Calc Cancelled Est GFR (MDRD) Af Amer Cancelled Est GFR (MDRD) Non-Af Cancelled BUN/Creatinine Ratio Cancelled Glucose Cancelled Calcium Cancelled Troponin I Cancelled Triglycerides Cholesterol LDL Cholesterol VLDL Cholesterol HDL Cholesterol Urine Color Urine Clarity Urine pH Ur Specific [place] Urine Protein Urine Glucose (UA) Urine Ketones Urine Occult Blood Urine Nitrite Urine Bilirubin Urine Urobilinogen Ur Leukocyte Esterase Urine RBC Urine WBC Ur Squamous Epith Cells Urine Bacteria Hyaline Casts Urine Mucus POC Glucose 04/02/18 04/02/18 04/02/18 16:28 18:10 18:30 WBC RBC Hgb Hct MCV MCH MCHC RDW RDW Differential Plt Count MPV Immature Gran % (Auto) Neut % (Auto) Lymph % (Auto) [place] % (Auto) Eos % (Auto) Baso % (Auto) Absolute Neuts (auto) Absolute Lymphs (auto) Total Counted Diff Path Review PT INR APTT Sodium 135 L Potassium 4.5 Chloride 104 Carbon Dioxide 21.0 Anion Gap 10 BUN 45 H Creatinine 1.75 H Estim Creat Clear Calc Est GFR (MDRD) Af Amer 36 L Est GFR (MDRD) Non-Af 30 L BUN/Creatinine Ratio 25.7 H Glucose 96 Calcium 8.9 Troponin I < 0.015 Triglycerides Cholesterol LDL Cholesterol VLDL Cholesterol HDL Cholesterol Urine Color Yellow Urine Clarity Clear Urine pH 5.0 Ur Specific [place] 1.015 Urine Protein Negative Urine Glucose (UA) Normal Urine Ketones Negative Urine Occult Blood Negative Urine Nitrite Negative Urine Bilirubin 1 H Urine Urobilinogen Normal Ur Leukocyte Esterase 25 H Urine RBC 0 SEEN Urine WBC 0 SEEN Ur Squamous Epith Cells 0 SEEN Urine Bacteria 0 SEEN Hyaline Casts 10-25 SEEN Urine Mucus 0 SEEN POC Glucose 94 04/03/18 05:08 WBC RBC Hgb Hct MCV MCH MCHC RDW RDW Differential Plt Count MPV Immature Gran % (Auto) Neut % (Auto) Lymph % (Auto) [place] % (Auto) Eos % (Auto) Baso % (Auto) Absolute Neuts (auto) Absolute Lymphs (auto) Total Counted Diff Path Review PT INR APTT Sodium Potassium Chloride Carbon Dioxide Anion Gap BUN Creatinine Estim Creat Clear Calc Est GFR (MDRD) Af Amer Est GFR (MDRD) Non-Af BUN/Creatinine Ratio Glucose Calcium Troponin I Triglycerides 73 Cholesterol 135 LDL Cholesterol 81 VLDL Cholesterol 15 HDL Cholesterol 39 L Urine Color Urine Clarity Urine pH Ur Specific [place] Urine Protein Urine Glucose (UA) Urine Ketones Urine Occult Blood Urine Nitrite Urine Bilirubin Urine Urobilinogen Ur Leukocyte Esterase Urine RBC Urine WBC Ur Squamous Epith Cells Urine Bacteria Hyaline Casts Urine Mucus POC Glucose ct no acute by report, unable to access images Assessment/Plan All Active Problems TIA (transient ischemic attack) (Acute) MARSHALL (acute kidney injury) (Acute) Elevated serum creatinine (Acute) Dehydration (Acute) Hypokalemia (Acute) Hypotension (Acute) TIA (transient ischemic attack) (Resolved) based on leukocytosis, mild fevers, suspect this is a manifestation of metabolic encephalopathy await cultures no mri due to stimulator, repeat ct pt/ot/sp
--- NOTE | 2018-04-03 11:29 | CT_ITS ---
STUDY: CT BRAIN WITHOUT CONTRAST REASON FOR EXAM: Female, 78 years old. CVA RADIATION DOSAGE (If Supplied By Facility): CTDIvol = ( 60.81 ) mGy, DLP = ( 1135.50 ) mGycm TECHNIQUE: Transaxial CT imaging of the brain was performed without administration of intravenous contrast material. Individualized dose optimization techniques were used for this CT. COMPARISON: April 02, 2018 FINDINGS: Normal soft tissue structures. Normal calvarium. There is moderate cerebral atrophy with widening of the extra-axial spaces and ventricular dilatation. There are areas of decreased attenuation within the white matter tracts of the supratentorial brain, consistent with microvascular disease changes. Normal basal ganglia and thalami. Normal brainstem. There is mild cerebellar atrophy. There is no intracranial hemorrhage. There are no findings of an acute ischemic infarction. Normal visualized paranasal sinuses. CT/Brain/Head without Contrast IMPRESSION: Chronic involutional changes of the brain. Small vessel ischemia. Electronically Signed: Rosina Carreon MD at 12:32 EDT Tel , Service support ,
--- NOTE | 2018-04-03 13:42 | PN_ITS ---
Patient Problems: Active and Suspected Problems TIA (transient ischemic attack) (Acute) MARSHALL (acute kidney injury) (Acute) Subjective: Patient was seen and examined. No new complains. Alert, oriented x3. No weakness or numbness in any extremity. Cannot have an MRI because she has a nerve stimulator. Objective: Physical Exam General: Alert, Cooperative, No apparent distress, AO x3 HEENT: Atraumatic, PERRLA, EOMI, Normocephalic Oral: Moist Mucosa, No Gingival or Mucosal Lesions/ Ulcerations Neck: No Nodes, Thyroid Normal Size and Texture Lungs: Clear to auscultation, Normal air movement, No rhonchi, No wheeze Cardiovascular: Regular rate, Regular Rhythm, Normal S1, Normal S2, No murmurs Abdomen: Bowel Sounds Present, Soft, Non Tender, Non-Distended, No Hepato- splenomegaly Extremities: No edema, No Calf Tenderness Skin: No rashes, No breakdown Musculoskeletal: No Tenderness to Palpation of Joints or Extremities, No Muscle Wasting Neurological: Cranial nerves II-XII grossly intact, Deep Tendon Reflexes 2+/4 and Symmetrical, Neuro grossly intact, Motor Exam 5/5 strength throughout, - - NIH = 2 (missed as she did not know the date and she had some trouble articulating the image of the kitchen) Psych/Mental Status: Normal Affect, Appropriate Vitals/I&O's: Vital Signs Temp Pulse Resp BP Pulse Ox 99.0 F 73 18 101/38 L 96 04/03/18 11:18 04/03/18 11:30 04/03/18 11:18 04/03/18 11:18 04/03/18 11:18 Oxygen Flow Rate (L/min) 2 Oxygen Delivery Method Room Air Weight: 67.4 kg Body Mass Index (BMI) 25.4 Intake and Output for Last 24 Hours 04/01/18 04/02/18 04/03/18 23:59 23:59 23:59 Intake Total 1215 / 1215 Balance 1215 / 1215 Laboratory Results 04/03/18 05:08: Triglycerides 73, Cholesterol 135, LDL Cholesterol 81, VLDL Cholesterol 15, HDL Cholesterol 39 L Current Medications Acetaminophen (Tylenol) 650 mg RECTAL Q4H PRN PRN PRN Reason: pain/fever Acetaminophen (Tylenol) 650 mg PO Q4H PRN PRN PRN Reason: pain/fever Al Hydroxide/Mg Hydroxide (Mylanta Ii) 30 ml PO Q4H PRN PRN PRN Reason: gi distress Albuterol Sulfate (Ventolin Aerosols) 2.5 mg INHALATION Q4H PRN PRN PRN Reason: SOB &/OR WHEEZING Albuterol Sulfate (Ventolin Liquid) 2 mg PO Q6H PRN PRN PRN Reason: SOB &/OR WHEEZING Albuterol Sulfate (Ventolin Aerosols) 2.5 mg INHALATION Q6HWA.RT [facility] Last Admin: 04/03/18 13:28 Dose: 2.5 mg Apixaban (Eliquis) 2.5 mg PO DAILY [facility] Last Admin: 04/03/18 11:08 Dose: 2.5 mg Artificial Tears (Tears Naturale, Artificial Tears) 2 drop EACH EYE DAILY [facility] Last Admin: 04/03/18 11:07 Dose: 2 drop Aspirin (Aspirin, Baby) 81 mg PO DAILY@0800 [facility] Last Admin: 04/03/18 08:22 Dose: 81 mg Atorvastatin Calcium (Lipitor) 20 mg PO QHS [facility] Last Admin: 04/02/18 23:43 Dose: 20 mg Bisacodyl (Dulcolax) 10 mg RECTAL DAILY PRN PRN PRN Reason: Constipation Budesonide (Pulmicort Aerosol) 0.5 mg INHALATION BID.RT [facility] Last Admin: 04/03/18 07:45 Dose: 0.5 mg Bupropion HCl (Wellbutrin Sr (100mg Tablets)) 200 mg PO BID [facility] Last Admin: 04/03/18 11:07 Dose: 200 mg Cholecalciferol (Vitamin D) 2,000 unit PO DAILY [facility] Last Admin: 04/03/18 11:06 Dose: 2,000 unit Citalopram Hydrobromide (Celexa) 20 mg PO DAILY [facility] Last Admin: 04/03/18 11:01 Dose: 20 mg Cyanocobalamin (Vitamin B12) 1,000 mcg PO DAILY@0800 [facility] Last Admin: 04/03/18 08:22 Dose: 1,000 mcg Guaifenesin (Robitussin) 10 ml PO Q4H PRN PRN PRN Reason: COUGH/CONGESTION Guaifenesin (Mucinex) 600 mg PO BID [facility] Last Admin: 04/03/18 11:08 Dose: 600 mg Sodium Chloride () 1,000 mls @ 100 mls/hr IV .Q10H [facility] Levothyroxine Sodium (Synthroid) 100 mcg PO DAILY@0600 [facility] Last Admin: 04/03/18 05:21 Dose: 100 mcg Lisinopril (Zestril) 10 mg PO BID [facility] Last Admin: 04/03/18 11:33 Dose: Not Given Loratadine (Claritin) 10 mg PO DAILY [facility] Last Admin: 04/03/18 11:01 Dose: 10 mg Magnesium Hydroxide (Milk Of Magnesia) 30 ml PO DAILY PRN PRN PRN Reason: Constipation Montelukast Sodium (Singulair) 10 mg PO QHS [facility] Last Admin: 04/02/18 23:43 Dose: 10 mg Pantoprazole Sodium (Protonix) 20 mg PO QHS [facility] Last Admin: 04/02/18 23:44 Dose: 20 mg Propranolol HCl (Inderal) 40 mg PO BID [facility] Last Admin: 04/03/18 11:34 Dose: Not Given Sodium Biphosphate/Sodium Phosphate (Fleet Enema) 1 bottle RECTAL DAILY PRN PRN PRN Reason: Constipation Sodium Chloride () 5 - 30 ml IV UD PRN PRN Reason: SALINE FLUSH Last Admin: 04/02/18 23:44 Dose: 10 ml Tolterodine Tartrate (Detrol La) 2 mg PO QHS [facility] Last Admin: 04/02/18 23:42 Dose: 2 mg Medical Necessity - Tobacco Use Smoking Status: Never smoker Tobacco Use: Non-smoker Assessment/Plan All Active Problems TIA (transient ischemic attack) (Acute) MARSHALL (acute kidney injury) (Acute) Elevated serum creatinine (Acute) Dehydration (Acute) Hypokalemia (Acute) Hypotension (Acute) TIA (transient ischemic attack) (Resolved) 88-year-old with past medical history of hypertension, hypothyroidism, COPD, who comes in with lesion, suspicious for possible TIA/CVA 1. Altered mental status, unclear etiology, resolved, patient is back to baseline. 2. Possible TIA/CVA, chest CT shows no acute infarct, patient cannot have an MRI, neurology consulted, repeat CT scan shows small vessel ischemia, aspirin, statin, Eliquis. No valvular lesions on 2D echo. Lipid profile is stable 3. MARSHALL secondary to dehydration, patient is off Lasix, on IV fluids, repeat creatinine in the morning 4. DVT prophylaxis -on Eliquis Code Visit Inpatient E&M: 62283 Subs Hosp L2
[2018-04-03 13:54] LABS: Pathologist Review Reviewed
[2018-04-03] MEDS: 0.9% Normal Saline 1,000 ML 100 ML IV (13:55)
[2018-04-03] MEDS: Tolterodine Tartrate 2 MG CAP.SA PO (22:22)
[2018-04-03] MEDS: Atorvastatin Calcium 20 MG Tablet PO (22:22)
[2018-04-03] MEDS: Pantoprazole Sodium 20 MG Tablet PO (22:23)
[2018-04-03] MEDS: Montelukast 10 MG Tablet PO (22:25)
[2018-04-03] MEDS: Propranolol 40 MG Tablet PO (23:21)
[2018-04-04] VITALS (8 sets, daily range): BP systolic 113–132; BP diastolic 41–60; PULSE 66–82; RESP 16–18; TEMP 37–37.3; O2SAT 94–97; BMI 25.4
[2018-04-04] MEDS: Levothyroxine 100 MCG Tablet PO (07:02)
[2018-04-04] MEDS: Budesonide Respules 0.5 MG/2 ML AMPUL.NEB. INHALATION (07:24)
[2018-04-04] MEDS: Albuterol 2.5 MG/3 ML VIAL.NEB. INHALATION (07:24)
[2018-04-04] MEDS: Cyanocobalamin 500 MCG Tablet 1000 MCG PO (08:26)
[2018-04-04] MEDS: Aspirin 81 MG TAB.CHEW PO (08:26)
[2018-04-04] MEDS: Loratadine 10 MG Tablet PO (09:54)
[2018-04-04] MEDS: Citalopram 20 MG Tablet PO (09:54)
[2018-04-04] MEDS: APIXABAN 2.5 MG TABLET PO (09:55)
[2018-04-04] MEDS: Propranolol 40 MG Tablet PO (09:55)
[2018-04-04] MEDS: guaiFENesin 600 MG Tablet PO (09:55)
[2018-04-04] MEDS: Lisinopril 10 MG Tablet PO (09:55)
[2018-04-04] MEDS: buPROPion (SR) 100 MG TABLET.SA 200 MG PO (09:56)
[2018-04-04] MEDS: 0.9% Normal Saline 1,000 ML 100 ML IV ×2 (10:06)
--- NOTE | 2018-04-04 11:22 | PN.NEURO_ITS ---
Patient Problems: Active and Suspected Problems TIA (transient ischemic attack) (Acute) MARSHALL (acute kidney injury) (Acute) Subjective: No new complaints. Objective: Is awake and alert. She is still somewhat confused. She knows she is in [place] which is improved from yesterday but she still states that she is in [facility]. Is not know the date, the year or the president and is somewhat distractible. - Physical Exam Vital Signs Temp Pulse Resp BP Pulse Ox 37.2 C 67 17 132/60 H 97 04/04/18 08:16 04/04/18 08:16 04/04/18 08:16 04/04/18 08:16 04/04/18 08:16 Oxygen Flow Rate (L/min) 2 Oxygen Delivery Method Room Air Weight: 67.4 kg Body Mass Index (BMI) 25.4 Intake and Output for Last 24 Hours 04/02/18 04/03/18 04/04/18 23:59 23:59 23:59 Intake Total 79 / 79 2254 / 2254 1231 / 1231 Balance 79 / 79 2254 / 2254 1231 / 1231 Current Medications Generic Name Dose Route Start Last Admin Trade Name Freq PRN Reason Stop Dose Admin Acetaminophen 650 mg 04/02/18 21:17 Tylenol RECTAL Q4H PRN PRN pain/fever Acetaminophen 650 mg 04/02/18 22:30 Tylenol PO Q4H PRN PRN pain/fever Al Hydroxide/Mg Hydroxide 30 ml 04/02/18 21:17 Mylanta Ii PO Q4H PRN PRN gi distress Albuterol Sulfate 2.5 mg 04/02/18 21:17 Ventolin Aerosols INHALATION Q4H PRN PRN SOB &/OR WHEEZING Albuterol Sulfate 2 mg 04/02/18 21:17 Ventolin Liquid PO Q6H PRN PRN SOB &/OR WHEEZING Albuterol Sulfate 2.5 mg 04/03/18 06:00 04/04/18 07:24 Ventolin Aerosols INHALATION 2.5 mg Q6HWA.RT [facility] Administration Apixaban 2.5 mg 04/03/18 10:00 04/04/18 09:55 Eliquis PO 2.5 mg DAILY [facility] Administration Artificial Tears 2 drop 04/03/18 10:00 04/04/18 10:04 Tears Naturale, Artificial Tears EACH EYE 2 drop DAILY [facility] Administration Aspirin 81 mg 04/02/18 22:00 04/04/18 08:26 Aspirin, Baby PO 81 mg DAILY@0800 [facility] Administration Atorvastatin Calcium 20 mg 04/02/18 22:00 04/03/18 22:22 Lipitor PO 20 mg QHS [facility] Administration Bisacodyl 10 mg 04/02/18 21:17 Dulcolax RECTAL DAILY PRN PRN Constipation Budesonide 0.5 mg 04/03/18 06:00 04/04/18 07:24 Pulmicort Aerosol INHALATION 0.5 mg BID.RT [facility] Administration Bupropion HCl 200 mg 04/02/18 22:45 04/04/18 09:56 Wellbutrin Sr (100mg Tablets) PO 200 mg BID [facility] Administration Cholecalciferol 2,000 unit 04/03/18 10:00 04/04/18 09:55 Vitamin D PO 2,000 unit DAILY [facility] Administration Citalopram Hydrobromide 20 mg 04/03/18 10:00 04/04/18 09:54 Celexa PO 20 mg DAILY [facility] Administration Cyanocobalamin 1,000 mcg 04/03/18 08:00 04/04/18 08:26 Vitamin B12 PO 1,000 mcg DAILY@0800 [facility] Administration Guaifenesin 10 ml 04/02/18 21:17 Robitussin PO Q4H PRN PRN COUGH/CONGESTION Guaifenesin 600 mg 04/02/18 22:00 04/04/18 09:55 Mucinex PO 600 mg BID [facility] Administration Sodium Chloride 1,000 mls @ 100 mls/hr 04/03/18 11:35 04/04/18 10:06 IV 100 mls/hr .Q10H [facility] Administration Levothyroxine Sodium 100 mcg 04/03/18 06:00 04/04/18 07:02 Synthroid PO 100 mcg DAILY@0600 [facility] Administration Lisinopril 10 mg 04/02/18 22:00 04/04/18 09:55 Zestril PO 10 mg BID [facility] Administration Loratadine 10 mg 04/03/18 10:00 04/04/18 09:54 Claritin PO 10 mg DAILY [facility] Administration Magnesium Hydroxide 30 ml 04/02/18 21:17 Milk Of Magnesia PO DAILY PRN PRN Constipation Montelukast Sodium 10 mg 04/02/18 22:00 04/03/18 22:25 Singulair PO 10 mg QHS [facility] Administration Nutritional Formula (Lactose Free) 120 ml 04/03/18 18:00 04/04/18 09:53 Ensure Enlive PO 120 ml 4X/DAY [facility] Administration Pantoprazole Sodium 20 mg 04/02/18 22:00 04/03/18 22:23 Protonix PO 20 mg QHS [facility] Administration Propranolol HCl 40 mg 04/02/18 22:00 04/04/18 09:55 Inderal PO 40 mg BID [facility] Administration Sodium Biphosphate/Sodium Phosphate 1 bottle 04/02/18 21:17 Fleet Enema RECTAL DAILY PRN PRN Constipation Sodium Chloride 5 - 30 ml 04/02/18 20:45 04/02/18 23:44 IV 10 ml UD PRN Administration SALINE FLUSH Tolterodine Tartrate 2 mg 04/02/18 22:45 04/03/18 22:22 Detrol La PO 2 mg QHS [facility] Administration Repeat CT unchanged by report Medical Necessity - Tobacco Use Smoking Status: Never smoker Tobacco Use: Non-smoker Assessment/Plan All Active Problems TIA (transient ischemic attack) (Acute) MARSHALL (acute kidney injury) (Acute) Elevated serum creatinine (Acute) Dehydration (Acute) Hypokalemia (Acute) Hypotension (Acute) TIA (transient ischemic attack) (Resolved) based on leukocytosis, mild fevers, suspect this is a manifestation of metabolic encephalopathy This may be due to her acute kidney injury which appears to be improved. She is somewhat improved for now. Continue supportive therapy and home when baseline.
[2018-04-04 11:31] LABS: Absolute Lymphocyte Count 1.06 X10^3/ul (0.83-4.51); Absolute Neutrophil Count 5.4 X10^3/uL (2.0-7.7); Basophil# 0.03 X10^3/uL; Basophil% 0.4 % (0-1); Eosinophil# 0.05 X10^3/uL; Eosinophils% 0.7 % (0-5); Hematocrit 31.5 % (37-47); Hemoglobin 10.6 g/dl (12.0-15.0); Lymphocyte # 1.06 X10^3/ul (4.0); Lymphocyte % 15.1 % (19-41); Mean Corp Hgb Conc 33.7 g/gl (32-36); Mean Corpuscular Hgb 31.4 pg (27.0-32.0); Mean Corpuscular Volume 93.2 fL (81-99); Mean Platelet Vol. 9.5 fl (6.2-12.0); Monocyte# 0.44 X10^3/uL; Monocyte% 6.3 % (0-10); Neutrophil # 5.35 X10^3/uL (2.7-7.7); Neutrophil % 76.4 % (47-70); Platelet Count 213 K/mm3 (150-450); RBC Distribution Width CV 15.7 % (11.6-14.6); RBC Distribution Width SD 51.7 fl (35.1-43.9); Red Blood Count 3.38 M/mm3 (4.2-5.4)
[2018-04-04 11:32] LABS: POSITIVE COUNT NO; POSITIVE DIFFERENTIAL NO; POSITIVE MORPHOLOGY NO
--- NOTE | 2018-04-04 11:41 | CASEMGMT ---
Patient will be discharged back to [facility] today. RENA called Delia at [facility] and left her a voice mail letting her know this information. Mayte CRAIN MSW
[2018-04-04 11:57] LABS: Anion Gap 8 (5-15); BUN 22 mg/dL (7-18); BUN/Creat Ratio 23.7 RATIO (10-20); Calcium,Total 8.1 mg/dL (8.5-10.1); Chloride 112 mmol/L (98-107); Creatinine, Serum 0.93 mg/dL (0.55-1.02); EST Glomerular Filtration Rate 62 mL/min (>60); Est Glom Filt Rate - Afr Amer 75 mL/min (>60); Estimated Creatinine Clearance 42.36 ml/min; Glucose 108 mg/dL (74-106); Potassium 4.1 mmol/L (3.5-5.1); Sodium Level 138 mmol/L (136-145)
--- NOTE | 2018-04-04 11:57 | PCM.TXEXTCAR ---
- Diet 04/03/18 01:36 Diet: Cardiac/Low Cholesterol Is pt able to select menu?: Yes - Routine Orders/Code Status Suppository Type: Dulcolax 10mg Suppository Frequency: Daily PRN Routine Lab Work: CBC - 3 days, BMP - 3 days Code Status: Full Code - Therapies Physical Therapy: Eval and Treat Occupational Therapy: Eval and Treat - Problem/Diagnosis (1) Metabolic encephalopathy Status: Acute Current Visit: Yes (2) MARSHALL (acute kidney injury) Status: Acute Current Visit: Yes (3) Dehydration Status: Acute Current Visit: No (4) History of pulmonary embolism Status: Chronic Current Visit: No (5) COPD (chronic obstructive pulmonary disease) Status: Chronic Comment: Lifelong non-smoker Current Visit: No (6) HTN (hypertension) Status: Chronic Current Visit: No (7) Vertigo Status: Chronic Current Visit: No - Allergies/Procedures Done in Hospital Allergies/Adverse Reactions: Allergies Penicillins [PCN] Allergy (Verified 01/25/18 11:38) Hives Procedures: 2-D Echocardiogram - Type of Care/Length of Stay Estimated LOS: Convalescent Care Less Than 30 days Type of Care Needed: Skilled Rehab Potential: Fair Prognosis: Fair - Additional Orders/Day of Discharge Day of Discharge: 04/04/18 - Dietary and Speech Recommendations Dietitian Recommendations/Changes: Rec continuing cardiac/low cholesterol diet. May need to consider regular diet if intake inadequate. Will provide ensure enlive on medpass for additional calories and nutrients if consumed. - Follow Up Care Primary Care Physician: Bharati Kc DO [Primary Care Provider] - Please follow up with your Primary Care Physician in: 2 weeks
--- NOTE | 2018-04-04 14:12 | PCM.DC.SUM ---
<Pro Curry - Last Filed: 04/04/18 14:12> Discharge Date and Diagnosis - Problem List Patient Problems: Active and Suspected Problems TIA (transient ischemic attack) (Acute) MARSHALL (acute kidney injury) (Acute) Metabolic encephalopathy (Acute) Date of Admission: 04/02/18 Date of Discharge: 04/04/18 - Primary Discharge Diagnosis Active and Suspected Problems MARSHALL (acute kidney injury) (Acute) 2/2 dehydration Metabolic encephalopathy (Acute) 2/2 above TIA ruled out COPD Hx PE on eliquis Hypothyroid Vertigo (chronic) - Secondary Discharge Diagnosis Chronic Problems History of pulmonary embolism (Chronic) Subcortical infarction (Chronic) Obesity (BMI 30.0-34.9) (Chronic) COPD (chronic obstructive pulmonary disease) (Chronic) Lifelong non-smoker HTN (hypertension) (Chronic) Hx of deep venous thrombosis (Chronic) Hypothyroid (Chronic) Chronic headache (Chronic) Vertigo (Chronic) Hospital Course and Treatment Imaging Results: CT/Brain/Head without Contrast IMPRESSION: Chronic involutional changes of the brain. Small vessel ischemia. CT/Brain/Head without Contrast IMPRESSION: Chronic involutional changes of the brain. Small vessel ischemia. Echo:Interpretation Summary The study was technically difficult. Left ventricular systolic function is normal. The estimated ejection fraction is 65 %. Lipomatous hypertrophy of the atrial septum. There is mild mitral annular calcification. Trivial mitral valve insufficiency. Trivial tricuspid valve insufficiency. Mild focal aortic valve thickening. Unable to estimate RV systolic pressure/pulmonary artery pressure due to technically difficult study. No evidence for diastolic dysfunction. Winter - neuro Operations: None Procedures: None, 2-D Echocardiogram Summary of Care Provided: Physical exam on day of discharge: General: Resting comfortably NAD Psych: A/Ox3 normal affect HEENT: PEARRLA AT NC Neck: Supple NT CV: RRR no m/t/r/g/h Resp: CTA Abd: [id number] Soft NT no guarding or rigidity Ext: DP2+= no edema Skin: W/D normal turgor Lymph/Heme: No active bleeding or adenopathy Neuro: CN2-12 intact Hospital course: The patient is a 78 year old F with a hx of COPD, HTN, DVT/PE, hypothyroidism, chronic vertigo, who presented to the ER from SNF for increased confusion and left sided weakness. She came to the ER and was confused, underwent a CT brain which was negative. She was admitted with concern for TIA. Pt was already on eliquis for PE hx. She was placed on tele. She could not have an MRI due to the presence of a stimulator. She had elevated BUN and creatinine, was felt to be in MARSHALL, and had her lasix held and was given fluids. White count was elevated but UA and CXR were negative. She had a repeat CT brain which was negative. Neuro was consulted and felt that she had metabolic encephalopathy. She continued to improve and her condition was felt to be acute metabolic encephalopathy secondary to AK I which was felt secondary to dehydration. She was discharged back to alf in stable condition. Please follow-up with her BMP closely. This patient was seen by Pro Curry PA-C under the supervision of Doctor Krueger. [] Discharge Diet: Low fat/ Low Cholesterol, 2000 mg Sodium Diet Discharge Activity: Return to Normal Activity Home Medications: Medications to take at Discharge Acetaminophen 650 mg PO Q4H PRN PRN 04/11/17 Acetaminophen 650 mg RC Q4H PRN PRN 04/11/17 Albuterol Aerosols [Ventolin Aerosols] 2.5 mg INHALATION Q4H PRN PRN 04/11/17 Albuterol Liquid [Ventolin Liquid] 2 mg PO Q6H PRN PRN 04/11/17 Atorvastatin Calcium [Lipitor] 20 mg PO QHS 04/11/17 Azelas/Fluticasone/Sod Chlorid [Ticalast Nasal [place] Kit] 2 each NS QHS 04/11/17 Bisacodyl 10 mg RC DAILY PRN PRN 04/11/17 Cholecalciferol (Vitamin D3) [Vitamin D3] 2,000 unit PO DAILY 04/11/17 Furosemide [Lasix] 20 mg PO DAILY 04/11/17 Levothyroxine [Synthroid] 100 mcg PO DAILY 04/11/17 Lisinopril [Zestril] 10 mg PO BID 04/11/17 Loratadine 10 mg PO DAILY 04/11/17 Mag Hydrox/Al Hydrox/Simeth [Antacid Suspension] 30 ml PO Q4H PRN PRN 04/11/17 Magnesium Hydroxide [Milk Of Magnesia] 30 ml PO DAILY PRN PRN 04/11/17 Meclizine HCl 25 mg PO TID PRN PRN 04/11/17 Mometasone/Formoterol [Dulera 100 Mcg/5 Mcg Inhaler] 1 puff IH DAILY 04/11/17 Na Phos,M-B/Na Phos,Di-Ba [Fleet Enema] 120 ml RECTAL DAILY PRN PRN 04/11/17 Omeprazole 20 mg PO QHS 04/11/17 Oxybutynin Chloride [Ditropan Xl] 10 mg PO QHS 04/11/17 Sumatriptan Succinate [Imitrex] 100 mg PO .X1 PRN 04/11/17 Tetrahydrz/Dext 70/Peg 400/Pvp [Visine Advanced Eye Drop] 2 drop EACH EYE DAILY 04/11/17 Trazodone HCl 100 mg PO QHS 04/11/17 Apixaban [Eliquis] 2.5 mg PO DAILY 10/15/17 Propranolol HCl 40 mg PO BID 10/15/17 Glucosam/Chondroitin/Diet Cb25 [Trepadone Capsule] 1 tab PO BID 10/16/17 Montelukast Sodium [Singulair] 10 mg PO QHS 10/16/17 Bupropion HCl [Bupropion HCl Sr] 200 mg PO BID 01/25/18 Cyanocobalamin [Vitamin B12] 1,000 mcg PO DAILY@0800 01/25/18 Citalopram Hydrobromide [Citalopram HBr] 20 mg PO DAILY 04/02/18 Fluticasone/Vilanterol [Breo Ellipta 200-25 Mcg INH] 1 inhaler INHALATION DAILY 04/02/18 Ensure Enlive 120 ml PO 4X/DAY liquid 04/04/18 Primary Care Physician: Bharati Kc DO [Primary Care Provider] - Please follow up with your Primary Care Physician in: 2 weeks Disposition: [facility] facility Minutes spent on discharge:: 35 Patient Condition:: Stable Medical Necessity - Tobacco Use Smoking Status: Never smoker Tobacco Use: Non-smoker Meaningful Use Info Meaningful Use Diagnoses (Choose all that apply): None applicable <Tonya Krueger - Last Filed: 04/04/18 16:28> Discharge Date and Diagnosis - Primary Discharge Diagnosis Active and Suspected Problems TIA (transient ischemic attack) (Acute) MARSHALL (acute kidney injury) (Acute) Metabolic encephalopathy (Acute) - Secondary Discharge Diagnosis Chronic Problems History of pulmonary embolism (Chronic) Subcortical infarction (Chronic) Obesity (BMI 30.0-34.9) (Chronic) COPD (chronic obstructive pulmonary disease) (Chronic) Lifelong non-smoker HTN (hypertension) (Chronic) Hx of deep venous thrombosis (Chronic) Hypothyroid (Chronic) Chronic headache (Chronic) Vertigo (Chronic) Hospital Course and Treatment Summary of Care Provided: The patient is a 78 year old F [] Code Visit Inpatient E&M: 72764 Disch Hosp
--- NOTE | 2018-04-04 14:17 | CASEMGMT ---
Orders faxed to [facility]. Called [facility] and arranged for patient to get picked up at 430 via cot. Called [facility] and notified Laura, left a message for patient's daughter, and notified RN. Plan: d/c back to [facility] under intermediate level of care. She is a watermaster resident of [facility]. [facility] transported her via cot. Mayte CRAIN MSW
--- NOTE | 2018-04-04 14:20 | DS.PCM_ITS ---
<Pro Curry - Last Filed: 04/04/18 14:12> Discharge Date and Diagnosis - Problem List Patient Problems: Active and Suspected Problems TIA (transient ischemic attack) (Acute) MARSHALL (acute kidney injury) (Acute) Metabolic encephalopathy (Acute) Date of Admission: 04/02/18 Date of Discharge: 04/04/18 - Primary Discharge Diagnosis Active and Suspected Problems MARSHALL (acute kidney injury) (Acute) 2/2 dehydration Metabolic encephalopathy (Acute) 2/2 above TIA ruled out COPD Hx PE on eliquis Hypothyroid Vertigo (chronic) - Secondary Discharge Diagnosis Chronic Problems History of pulmonary embolism (Chronic) Subcortical infarction (Chronic) Obesity (BMI 30.0-34.9) (Chronic) COPD (chronic obstructive pulmonary disease) (Chronic) Lifelong non-smoker HTN (hypertension) (Chronic) Hx of deep venous thrombosis (Chronic) Hypothyroid (Chronic) Chronic headache (Chronic) Vertigo (Chronic) Hospital Course and Treatment Imaging Results: CT/Brain/Head without Contrast IMPRESSION: Chronic involutional changes of the brain. Small vessel ischemia. CT/Brain/Head without Contrast IMPRESSION: Chronic involutional changes of the brain. Small vessel ischemia. Echo:Interpretation Summary The study was technically difficult. Left ventricular systolic function is normal. The estimated ejection fraction is 65 %. Lipomatous hypertrophy of the atrial septum. There is mild mitral annular calcification. Trivial mitral valve insufficiency. Trivial tricuspid valve insufficiency. Mild focal aortic valve thickening. Unable to estimate RV systolic pressure/pulmonary artery pressure due to technically difficult study. No evidence for diastolic dysfunction. Winter - neuro Operations: None Procedures: None, 2-D Echocardiogram Summary of Care Provided: Physical exam on day of discharge: General: Resting comfortably NAD Psych: A/Ox3 normal affect HEENT: PEARRLA AT NC Neck: Supple NT CV: RRR no m/t/r/g/h Resp: CTA Abd: [id number] Soft NT no guarding or rigidity Ext: DP2+= no edema Skin: W/D normal turgor Lymph/Heme: No active bleeding or adenopathy Neuro: CN2-12 intact Hospital course: The patient is a 78 year old F with a hx of COPD, HTN, DVT/PE, hypothyroidism, chronic vertigo, who presented to the ER from SNF for increased confusion and left sided weakness. She came to the ER and was confused, underwent a CT brain which was negative. She was admitted with concern for TIA. Pt was already on eliquis for PE hx. She was placed on tele. She could not have an MRI due to the presence of a stimulator. She had elevated BUN and creatinine, was felt to be in MARSHALL, and had her lasix held and was given fluids. White count was elevated but UA and CXR were negative. She had a repeat CT brain which was negative. Neuro was consulted and felt that she had metabolic encephalopathy. She continued to improve and her condition was felt to be acute metabolic encephalopathy secondary to AK I which was felt secondary to dehydration. She was discharged back to residential in stable condition. Please follow-up with her BMP closely. This patient was seen by Pro Curry PA-C under the supervision of Doctor Krueger. [] Discharge Diet: Low fat/ Low Cholesterol, 2000 mg Sodium Diet Discharge Activity: Return to Normal Activity Home Medications: Medications to take at Discharge Acetaminophen 650 mg PO Q4H PRN PRN 04/11/17 Acetaminophen 650 mg RC Q4H PRN PRN 04/11/17 Albuterol Aerosols [Ventolin Aerosols] 2.5 mg INHALATION Q4H PRN PRN 04/11/17 Albuterol Liquid [Ventolin Liquid] 2 mg PO Q6H PRN PRN 04/11/17 Atorvastatin Calcium [Lipitor] 20 mg PO QHS 04/11/17 Azelas/Fluticasone/Sod Chlorid [Ticalast Nasal Ronald Kit] 2 each NS QHS Bisacodyl 10 mg RC DAILY PRN PRN 04/11/17 Cholecalciferol (Vitamin D3) [Vitamin D3] 2,000 unit PO DAILY 04/11/17 Furosemide [Lasix] 20 mg PO DAILY 04/11/17 Levothyroxine [Synthroid] 100 mcg PO DAILY 04/11/17 Lisinopril [Zestril] 10 mg PO BID 04/11/17 Loratadine 10 mg PO DAILY 04/11/17 Mag Hydrox/Al Hydrox/Simeth [Antacid Suspension] 30 ml PO Q4H PRN PRN 04/11/17 Magnesium Hydroxide [Milk Of Magnesia] 30 ml PO DAILY PRN PRN 04/11/17 Meclizine HCl 25 mg PO TID PRN PRN 04/11/17 Mometasone/Formoterol [Dulera 100 Mcg/5 Mcg Inhaler] 1 puff IH DAILY 04/11/17 Na Phos,M-B/Na Phos,Di-Ba [Fleet Enema] 120 ml RECTAL DAILY PRN PRN 04/11/17 Omeprazole 20 mg PO QHS 04/11/17 Oxybutynin Chloride [Ditropan Xl] 10 mg PO QHS 04/11/17 Sumatriptan Succinate [Imitrex] 100 mg PO .X1 PRN 04/11/17 Tetrahydrz/Dext 70/Peg 400/Pvp [Visine Advanced Eye Drop] 2 drop EACH EYE DAILY 04/11/17 Trazodone HCl 100 mg PO QHS 04/11/17 Apixaban [Eliquis] 2.5 mg PO DAILY 10/15/17 Propranolol HCl 40 mg PO BID 10/15/17 Glucosam/Chondroitin/Diet Cb25 [Trepadone Capsule] 1 tab PO BID 10/16/17 Montelukast Sodium [Singulair] 10 mg PO QHS 10/16/17 Bupropion HCl [Bupropion HCl Sr] 200 mg PO BID 01/25/18 Cyanocobalamin [Vitamin B12] 1,000 mcg PO DAILY@0800 01/25/18 Citalopram Hydrobromide [Citalopram HBr] 20 mg PO DAILY 04/02/18 Fluticasone/Vilanterol [Breo Ellipta 200-25 Mcg INH] 1 inhaler INHALATION DAILY 04/02/18 Ensure Enlive 120 ml PO 4X/DAY liquid 04/04/18 Primary Care Physician: Bharati Kc DO [Primary Care Provider] - Please follow up with your Primary Care Physician in: 2 weeks Disposition: [facility] facility Minutes spent on discharge:: 35 Patient Condition:: Stable Medical Necessity - Tobacco Use Smoking Status: Never smoker Tobacco Use: Non-smoker Meaningful Use Info Meaningful Use Diagnoses (Choose all that apply): None applicable <Toyna Krueger - Last Filed: 04/04/18 16:28> Discharge Date and Diagnosis - Primary Discharge Diagnosis Active and Suspected Problems TIA (transient ischemic attack) (Acute) MARSHALL (acute kidney injury) (Acute) Metabolic encephalopathy (Acute) - Secondary Discharge Diagnosis Chronic Problems History of pulmonary embolism (Chronic) Subcortical infarction (Chronic) Obesity (BMI 30.0-34.9) (Chronic) COPD (chronic obstructive pulmonary disease) (Chronic) Lifelong non-smoker HTN (hypertension) (Chronic) Hx of deep venous thrombosis (Chronic) Hypothyroid (Chronic) Chronic headache (Chronic) Vertigo (Chronic) Hospital Course and Treatment Summary of Care Provided: The patient is a 78 year old F [] Code Visit Inpatient E&M: 08951 Disch Hosp
== END 2018-04-04 16:36 | disposition skilled nursing facility (03) | DRG 640 ==
LOC: ED 16:37 → PCU 19:49
PROVIDERS: Emergency Provider Emergency Medicine; Family Provider Internal Medicine; PCP Internal Medicine; Visit Provider Internal Medicine
DX: E86.0 Dehydration (principal); G93.41 Metabolic encephalopathy; N17.9 Acute kidney failure, unspecified; J44.9 Chronic obstructive pulmonary disease, unspecified; I10 Essential (primary) hypertension; E66.9 Obesity, unspecified; E03.9 Hypothyroidism, unspecified; Z86.718 Personal history of other venous thrombosis and embolism; Z86.711 Personal history of pulmonary embolism; Z68.25 Body mass index [BMI] 25.0-25.9, adult
CPT/HCPCS: 36415; 70450; 71045; 80048; 80061; 81001; 82962; 84484; 85025; 85610; 85730; 93005; 93306; 94640; 97162; 97166; 97802; 99285; J7030; P9612; A4216

== ENCOUNTER 2018-04-13 11:41 | Emergency (ER) | payer MEDICARE, SELFPAY ==
[2018-04-13 11:43] VITALS: PULSE 102; RESP 33; TEMP 36.5; O2SAT 99; BMI 30.9
[2018-04-13 11:47] VITALS: BP 70/41
--- NOTE | 2018-04-13 12:04 | RAD_ITS ---
STUDY: X-RAY CHEST REASON FOR EXAM: Female, 78 years old. Shortness of breath TECHNIQUE: Single AP portable view of the chest. COMPARISON: 04/02/2018 FINDINGS: Cardiac monitoring leads overlie the chest. The interstitial markings are prominent at the lung bases, unchanged from the prior study. There is no demonstrated pleural abnormality. Normal size heart. Normal mediastinum and nicole. Normal visualized pulmonary arteries. There is mild calcification of the aortic arch. There are diffuse degenerative changes of the visualized thoracic spine. The bones are demineralized. There is no demonstrated abnormality of the visualized soft tissue structures of the upper abdomen. RAD/Chest 1 View (Portable) IMPRESSION: Prominent interstitial markings. No focal consolidation. No significant change from 04/02/2018. Electronically Signed: Yovanny Kaur DO at 12:48 EDT Tel , Service support ,
[2018-04-13 12:10] VITALS: PULSE 85; RESP 12; RESP 35; O2SAT 85
[2018-04-13] MEDS: MethylPREDNISolone 125 MG/2 ML Vial IV (12:24)
[2018-04-13] MEDS: 0.9% Normal Saline 1,000 ML 999 ML IV ×2 (12:24)
[2018-04-13] MEDS: Etomidate 20 MG/10 ML Vial IV (12:30)
[2018-04-13] MEDS: Succinylcholine Chloride 200 MG/10 ML Vial IV (12:31)
--- NOTE | 2018-04-13 12:43 | ED.VISSUMM ---
- ER Visit Summary Date of Service: 04/13/18 Chief Complaint: Shortness of breath History of Present Illness: The patient is a 78 F history of COPD, dementia, stroke, hypertension, dysphasia and DNR Comfort Care arrest. Patient presents from an area senior care in severe respiratory distress. She is unable to give any history due to her overall medical condition. Physical Examination: Elderly female in distress. Initial blood pressure 70/41 temperature 97 heart rate 102 respiratory rate 33 pulse ox is 90% on 2 L. She is hypoxic. She is in respiratory failure. She looks severely dehydrated. Her eyes are open but she is unresponsive. H EENT exam patient looks very dry. She has thick secretions. Her eyes are open. Neck nontender no lymphadenopathy. Trachea midline. Lungs shallow respirations. Diminished in both bases. Rhonchorous with expiratory wheezing. Heart tachycardic rate about 100-110 no murmur. Chest wall nontender. No crepitance. Abdomen is soft and nontender. Nondistended normal bowel sounds. Pelvic girdle intact. Extremities are pale. There is no edema. Neurologically her eyes are open she is unresponsive currently she is nonverbal. I cannot assess her motor function at this time. Nor her sensation. Test Results: [] Emergency Department Course and Treatment: Female from a senior care who presents dehydrated, septic and in respiratory failure. She is hypotensive. Her medical records from the senior care states she is DNR Comfort Care arrest. Her daughter is the power of compliance attorney who I spoke to shortly after the patient's arrival while therapy was being started. The daughter was driving to [place] to see her mom. Currently she is in [place] still 5 or 6 hours away. We discussed the severity of her mom's condition and she did want me to intubate the patient. And then with withdrawal therapy or continue aggressive measures depending on how she was responding. Patient was in extremis. She was given succinyl choline and etomidate. She went into V. fib arrest. Was shocked several times. Went into asystole. He was intubated using a 7-1/2 ET tube. The posterior pharynx was extremely dry. She had a very narrow trachea at the vocal cord level. Bilateral breath sounds were heard. Ultrasound showed absolutely no cardiac activity. We continued CPR, IV epinephrine ?2. With no response. Given the patient's age and overall medical condition and severity of her current illness we called the code at 1239. Treatment Plan: [] Disposition: [facility] Impression: Acute respiratory failure. Intubated by ER Severe dehydration Septic shock Hypotension Exacerbation COPD Right lower lobe pneumonia Pronounced at 1239 This note was generated with [employer] dictation software. It may contain incorrect words, spelling, and punctuation that were not noted in review of the chart prior to signing ED Disposition - Plan for ED Patient: Chief Complaint: Shortness of Breath Referrals: Pieter Curiel [Primary Care Provider] -
[2018-04-13 12:44] LABS: ALB/GLOB Ratio 0.4 RATIO (0.9-2.4); AST(SGOT) 46 U/L (15-37); Absolute Lymphocyte Count 1.32 X10^3/ul (0.83-4.51); Absolute Neutrophil Count 9.4 X10^3/uL (2.0-7.7); Alanine Aminotransfer ALT/SGPT 79 U/L (13-56); Albumin, Serum 2.1 g/dL (3.2-5.0); Alkaline Phosphatase 106 U/L (45-117); Anion Gap 11 (5-15); BUN 76 mg/dL (7-18); BUN/Creat Ratio 29.9 RATIO (10-20); Basophil# 0.05 X10^3/uL; Basophil% 0.4 % (0-1); Calcium,Total 9.5 mg/dL (8.5-10.1); Chloride 125 mmol/L (98-107); Creatinine, Serum 2.54 mg/dL (0.55-1.02); EST Glomerular Filtration Rate 19 mL/min (>60); Eosinophil# 0.02 X10^3/uL; Eosinophils% 0.2 % (0-5); Est Glom Filt Rate - Afr Amer 24 mL/min (>60); Estimated Creatinine Clearance 19.05 ml/min; Globulin 5.2 g/dL (2.2-4.2); Glucose 113 mg/dL (74-106); Hematocrit 42.2 % (37-47); Hemoglobin 13.9 g/dl (12.0-15.0); Lymphocyte # 1.32 X10^3/ul (4.0); Lymphocyte % 11.8 % (19-41); Mean Corp Hgb Conc 32.9 g/gl (32-36); Mean Corpuscular Hgb 30.2 pg (27.0-32.0); Mean Corpuscular Volume 91.7 fL (81-99); Mean Platelet Vol. 11.5 fl (6.2-12.0); Monocyte# 0.29 X10^3/uL; Monocyte% 2.6 % (0-10); Neutrophil # 9.42 X10^3/uL (2.7-7.7); Platelet Count 350 K/mm3 (150-450); Potassium 3.6 mmol/L (3.5-5.1); Protein, Total 7.3 g/dL (6.4-8.2); RBC Distribution Width SD 60.2 fl (35.1-43.9); Sodium Level 155 mmol/L (136-145); White Blood Count 11.2 K/mm3 (4.4-11.0)
[2018-04-13 12:47] LABS: International Normalized Ratio 1.7; Prothrombin Time (Protime)PT. 20.4 SECONDS (11.7-14.9)
[2018-04-13 12:48] LABS: Partial Thromboplast Time 29.9 Seconds (24.1-36.2)
--- NOTE | 2018-04-13 12:49 | ED.DCSUM_ITS ---
- ER Visit Summary Date of Service: 04/13/18 Chief Complaint: Shortness of breath History of Present Illness: The patient is a 78 F history of COPD, dementia, stroke, hypertension, dysphasia and DNR Comfort Care arrest. Patient presents from an area retirement in severe respiratory distress. She is unable to give any history due to her overall medical condition. Physical Examination: Elderly female in distress. Initial blood pressure 70/41 temperature 97 heart rate 102 respiratory rate 33 pulse ox is 90% on 2 L. She is hypoxic. She is in respiratory failure. She looks severely dehydrated. Her eyes are open but she is unresponsive. H EENT exam patient looks very dry. She has thick secretions. Her eyes are open. Neck nontender no lymphadenopathy. Trachea midline. Lungs shallow respirations. Diminished in both bases. Rhonchorous with expiratory wheezing. Heart tachycardic rate about 100-110 no murmur. Chest wall nontender. No crepitance. Abdomen is soft and nontender. Nondistended normal bowel sounds. Pelvic girdle intact. Extremities are pale. There is no edema. Neurologically her eyes are open she is unresponsive currently she is nonverbal. I cannot assess her motor function at this time. Nor her sensation. Test Results: [] Emergency Department Course and Treatment: Female from a retirement who presents dehydrated, septic and in respiratory failure. She is hypotensive. Her medical records from the retirement states she is DNR Comfort Care arrest. Her daughter is the power of corporate attorney who I spoke to shortly after the patient's arrival while therapy was being started. The daughter was driving to [place] to see her mom. Currently she is in [place] still 5 or 6 hours away. We discussed the severity of her mom's condition and she did want me to intubate the patient. And then with withdrawal therapy or continue aggressive measures depending on how she was responding. Patient was in extremis. She was given succinyl choline and etomidate. She went into V. fib arrest. Was shocked several times. Went into asystole. He was intubated using a 7-1/2 ET tube. The posterior pharynx was extremely dry. She had a very narrow trachea at the vocal cord level. Bilateral breath sounds were heard. Ultrasound showed absolutely no cardiac activity. We continued CPR, IV epinephrine ?2. With no response. Given the patient's age and overall medical condition and severity of her current illness we called the code at 1239. Treatment Plan: [] Disposition: [facility] Impression: Acute respiratory failure. Intubated by ER Severe dehydration Septic shock Hypotension Exacerbation COPD Right lower lobe pneumonia Pronounced at 1239 This note was generated with [employer] dictation software. It may contain incorrect words, spelling, and punctuation that were not noted in review of the chart prior to signing ED Disposition - Plan for ED Patient: Chief Complaint: Shortness of Breath Referrals: Pieter Curiel [Primary Care Provider] -
[2018-04-13 12:53] LABS: Differential Indicated SCAN CRITERIA MET; POSITIVE COUNT NO; POSITIVE DIFFERENTIAL NO; POSITIVE MORPHOLOGY YES
[2018-04-13 12:58] LABS: Differential Comment SCANNED
[2018-04-13 13:18] LABS: Lactic Acid 4.5 mmol/L (0.4-2.0)
--- NOTE | 2018-04-13 13:18 | ED.RN ---
Pt at 1239, see code documentation.
--- NOTE | 2018-04-13 13:34 | ED.RN ---
[facility] updated, spoke with Ricarda.
[2018-04-13 15:24] LABS: Reflex Lactate? Y
== END 2018-04-13 20:48 ==
LOC: ED 12:09
PROVIDERS: Emergency Provider Emergency Medicine; PCP Family Medicine
DX: J96.01 Acute respiratory failure with hypoxia (principal); A41.9 Sepsis, unspecified organism; R65.21 Severe sepsis with septic shock; I49.01 Ventricular fibrillation; E86.0 Dehydration; J44.1 Chronic obstructive pulmonary disease with (acute) exacerbation; J44.0 Chronic obstructive pulmonary disease with (acute) lower respiratory infection; J18.9 Pneumonia, unspecified organism; I10 Essential (primary) hypertension; R47.02 Dysphasia; Z86.73 Personal history of transient ischemic attack (TIA), and cerebral infarction without residual deficits
CPT/HCPCS: 31500; 71045; 80053; 83605; 85025; 85610; 85730; 87040; 92950; 94002; 96361; 96374; 96375; 99285; J7030